=== PATIENT | female | born 1995 | race Caucasian/White ===

== ENCOUNTER → 2021-02-11 16:31 | Outpatient (CLI) | payer MEDICAID, SELFPAY ==
[2021-02-11 17:18] LABS: Hematocrit 39.3 % (37-47); Hemoglobin 11.6 g/dL (12.0-15.0); Mean Corp Hgb Conc 29.5 g/dL (32-36); Mean Corpuscular Hgb 24.1 pg (27.0-32.0); Mean Corpuscular Volume 81.5 fL (81-99); Mean Platelet Vol. 9.5 fl (6.2-12.0); Platelet Count 342 K/mm3 (150-450); RBC Distribution Width CV 13.3 % (11.6-14.6); RBC Distribution Width SD 39.8 fl (35.1-43.9); Red Blood Count 4.82 M/mm3 (4.2-5.4); White Blood Count 9.2 K/mm3 (4.4-11.0)
[2021-02-11 18:11] LABS: Follicle Stimulating Hormone 4.4 mIU/mL; Luteinizing Hormone 8.7 mIU/mL; Prolactin 8.5 ng/mL; T4 Free Direct 0.95 ng/dL (0.76-1.46)
[2021-02-11 18:15] LABS: hCG Titer Quant., Serum < 1 mIU/mL (1-3)
[2021-02-15 09:06] LABS: Thyroid Stim Hormone (TSH) 2.51 uIU/mL (0.358-3.74)
[2021-02-17 12:48] LABS: Testosterone Free 2.6 pg/mL (0.0-4.2)
== END ==
PROVIDERS: PCP Pediatrics; Visit Provider Obstetrics & Gynecology
DX: N91.2 Amenorrhea, unspecified (principal)
CPT/HCPCS: 36415; 82627; 83001; 83002; 84146; 84402; 84439; 84443; 84702; 85027; 82626

== ENCOUNTER 2021-12-07 16:40 | Outpatient (CLI) | payer MEDICAID, SELFPAY ==
[2021-12-13 13:00] LABS: HPV Reflexed? NOT INDICATED
== END 2021-12-07 23:59 | disposition home or self-care (01) ==
LOC: LABSPEC 16:43
PROVIDERS: PCP Pediatrics; Visit Provider Obstetrics & Gynecology
DX: Z12.4 Encounter for screening for malignant neoplasm of cervix (principal)
CPT/HCPCS: 88175; G0145

== ENCOUNTER 2021-12-27 16:14 | Outpatient (CLI) | payer MEDICAID, SELFPAY ==
[2021-12-30 07:09] LABS: Chlamydia By Nucleic Acid AMP Negative (Negative)
[2021-12-30 14:16] LABS: Gonococcus By Nucleic Acid AMP Negative (Negative)
== END 2021-12-27 23:59 | disposition home or self-care (01) ==
LOC: LABSPEC 16:15
PROVIDERS: PCP Pediatrics; Visit Provider Obstetrics & Gynecology
DX: Z11.3 Encounter for screening for infections with a predominantly sexual mode of transmission (principal)
CPT/HCPCS: 87491; 87591

== ENCOUNTER 2022-02-23 01:18 | Emergency (ER) | payer MEDICAID, SELFPAY ==
[2022-02-23 01:19] VITALS: BP 153/84; PULSE 81; RESP 16; TEMP 36.1; O2SAT 98; BMI 49.7
--- NOTE | 2022-02-23 01:40 | EX.ED.DYSGE1 ---
HPI History of Present Illness Chief Complaint: GI Bleed Informant: patient Narrative Narrative: 26-year-old female presenting to the emergency room with rectal pain and bleeding. Patient states that it is been normal for her to be constipated. Her last bowel movement was yesterday. She states that she started bleeding this afternoon. It worsened tonight and she notes a sharp pain in the rectum. She has had rectal bleeding before but not to this extent. [facility] Medical History (Updated 02/23/22 @ 01:[address] Jose David Asencio DO) Bilateral headaches Environmental allergies Hypertension Home Medications hydrocortisone-pramoxine [Proctofoam HC] 1 applic [place] BID PRN #10 g 02/23/22 [Rx Last Taken Unknown] Allergy/AdvReac Type Severity Reaction Status Date / Time Latex, Natural Rubber Allergy Mild itching Verified 02/23/22 01:21 Family History Other Asthma Heart disease Hypertension Seizures Surgical History History of section Social History Smoking Status: Never smoker alcohol intake: never substance use type: does not use what type of physical activity do you participate in: walking frequency: 1-2 times per week ROS ROS ED Constitutional Constitutional ED: Denies chills or weight loss Eyes Eyes: Denies change in vision or diplopia ENT ENT ED: Denies ear pain, rhinorrhea or sore throat Cardiovascular Cardiovascular: Denies chest pain, orthopnea, palpitations or racing heartbeat Respiratory/Chest Respiratory/Chest: Denies cough, dyspnea or orthopnea Gastrointestinal Gastrointestinal: Denies abdominal pain, diarrhea, nausea or vomiting Genitourinary Genitourinary ED: Denies dysuria, hematuria or urinary frequency Musculoskeletal Musculoskeletal: Denies arthralgias or myalgias Integumentary Denies abscess or rash Neurologic Neurologic: Denies headache(s) or weakness Psychiatric Psychiatric: Denies anxiety, depression, suicidal ideation or suicidal thoughts Endocrine Endocrinology: Denies polydipsia, polyphagia or polyuria Allergic/Immunologic Allergic/Immunologic ED: Denies mouth swelling, tongue swelling or urticaria EXAM Physical Exam Const Vital Signs: 02/23/22 01:19 Temperature 96.9 F L Temperature Source Oral Pulse Rate 81 Respiratory Rate 16 Blood Pressure 153/84 H Blood Pressure Mean 107 Pulse Ox 98 Oxygen Delivery Method Room Air Positive well nourished, well developed and obese General Appearance ED: well developed Nutritional Appearance: obese HEENT Reports normocephalic, head/scalp atraumatic, TM's clear and moist mucous membranes Negative for trauma Tympanic Membrane ED: Yes TM's clear Eyes PERRL and EOMs intact bilaterally Neck no lymphadenopathy, supple and no JVD Resp normal respiratory effort and clear to auscultation bilaterally Cardio regular rate, regular rhythm and no murmurs GI normal to inspection, nondistended, normoactive bowel sounds and non-tender Palpation: soft Narrative: Rectal examination was performed in the presence of a female nurse. There is evidence of a anal fissure as well as external hemorrhoids. There is a palpable internal hemorrhoid as well. There is no bright red blood on the glove. Back/Spine no CVA tenderness and normal ROM Extremity normal to inspection General Extremety ED: Negative for edema General Extremity: Negative for edema Neuro oriented x3 and CN's II-XII intact bilaterally Sensorium / Orientation: alert Motor Exam: strength 5/5 throughout Psych mental status grossly normal Mood & Affect: Negative for depressed or tearful Skin no rashes or lesions noted and no wounds MDM MDM MDM Narrative Medical decision making narrative: Recommend that the patient started daily Colace. Will apply some lidocaine tonight for comfort and I will prescribe Proctofoam. Discharge Plan Triage Chief Complaint: GI Bleed ED Provider: Jose David Asencio Dx/Rx/DC Orders Clinical Impression: Constipation, Acute anal fissure, Bright red rectal bleeding, Hemorrhoids Instructions: ED Understanding Anal Fissures, Understanding Hemorrhoids Prescriptions: New Proctofoam HC 1-1 % foam 1 applic [place] BID PRN (Reason: hemorrhoids) Qty: 10 RF: 0 Primary Care Provider: NOT,DEFINED Referrals: Friend,Baudilio, DO [STAFF PHYSICIAN] - As Needed (If you wish to visit with a brass buffer regarding her constipation and hemorrhoids) NOT,DEFINED [Primary Care Provider] - Disposition Disposition: Home, Self Care
[2022-02-23] MEDS: Lidocaine 2% Jelly 1 APPLIC Tube TOPICAL (01:43)
[2022-02-23 01:45] VITALS: BP 153/84; PULSE 81; RESP 18; O2SAT 99
== END 2022-02-23 01:52 | disposition home or self-care (01) ==
LOC: ED 01:51
PROVIDERS: Emergency Provider Emergency Medicine; Visit Provider Emergency Medicine
DX: K60.0 Acute anal fissure (principal); K62.5 Hemorrhage of anus and rectum; K64.9 Unspecified hemorrhoids; K59.00 Constipation, unspecified; I10 Essential (primary) hypertension
CPT/HCPCS: 99283

== ENCOUNTER 2022-04-19 12:13 | Emergency (ER) | payer MEDICAID, SELFPAY ==
[2022-04-19 12:14] VITALS: BP 166/102; PULSE 77; RESP 18; TEMP 36.8; O2SAT 98; BMI 52.4
--- NOTE | 2022-04-19 12:24 | CT_ITS ---
STUDY: CT BRAIN WITHOUT CONTRAST REASON FOR EXAM: Female, 26 years old. Syncope, head injury RADIATION DOSAGE (If Supplied By Facility): CTDIvol = ( 44.99 ) mGy, DLP = ( 745.49 ) mGycm TECHNIQUE: Transaxial CT imaging of the brain was performed without administration of intravenous contrast material. Individualized dose optimization techniques were used for this CT. COMPARISON: No relevant priors. FINDINGS: Normal soft tissue structures. Normal calvarium. Normal size ventricles and extra-axial spaces for the patient''s age. Normal white matter tracts of the cerebral hemispheres. Normal basal ganglia and thalami. Normal brainstem. Normal cerebellum. There is no intracranial hemorrhage. There are no findings of an acute ischemic infarction. Normal visualized paranasal sinuses. CT/Brain/Head without Contrast IMPRESSION: Normal unenhanced CT scan of the brain. Electronically Signed: Prabhakar Ronquillo MD at 13:21 EDT ,
--- NOTE | 2022-04-19 12:25 | EKG12_ITS ---
Test Reason : Syncope Blood Pressure : / mmHG Vent. Rate : 080 BPM Atrial Rate : 080 BPM P-R Int : 164 ms QRS Dur : 098 ms QT Int : 382 ms P-R-T Axes : 030 036 021 degrees QTc Int : 440 ms Normal sinus rhythm Normal ECG Confirmed by SAMUEL HESTER, JONO ([id number]), photograph editor JING HARRISON ([id number]) on 04/20/2022 11:07:45 AM Referred By: Delroy Confirmed By:JONO BAKER MD
--- NOTE | 2022-04-19 12:25 | EX.ED.DYSGE1 ---
HPI History of Present Illness Chief Complaint: Syncope Detail of Chief Complaint: Syncope with head injury that occurred yesterday Informant: patient Narrative Narrative: TubPatient presents to the emergency department after sustaining a syncopal episode yesterday while in the shower. Patient states that she had just worked all day and had mowed the lawn when she went in the shower she started feeling lightheaded and got tunnel vision and then remembers waking up in a seated position. Patient did hit the left side of her head on the tile. Today she woke up and she is feeling lightheaded and nauseated and vomited x2 this morning. Patient unsure of her last menstrual period but is on an oral contraceptive. She denies chest pain. Patient denies recent illness. Patient states she is currently being evaluated for her thyroid and for anemia. Prior similar symptoms: No PFSH PFSH Medical History (Updated 04/19/22 @ 13:[address] Landon Addison DO) Bilateral headaches Environmental allergies Hypertension Home Medications pantoprazole 40 mg tablet,delayed release 1 tab PO DAILY 04/19/22 [History Last Taken Unknown] Allergy/AdvReac Type Severity Reaction Status Date / Time Latex, Natural Rubber Allergy Mild itching Verified 04/19/22 12:14 Family History Other Asthma Heart disease Hypertension Seizures Surgical History History of section Social History Smoking Status: Current every day smoker tobacco type: e-cigarettes alcohol intake: never substance use type: does not use what type of physical activity do you participate in: walking frequency: 1-2 times per week ROS ROS ED Review of Systems ROS Unobtainable: other Constitutional Constitutional ED: Reports lethargy; Denies chills, fever(s), sweats or weight loss Eyes Eyes: Denies blurry vision, change in vision or diplopia ENT ENT ED: Denies rhinorrhea or sore throat Cardiovascular Cardiovascular: Denies chest pain, orthopnea or racing heartbeat Respiratory/Chest Respiratory/Chest: Reports dyspnea and dyspnea on exertion; Denies cough, orthopnea or sputum Gastrointestinal Gastrointestinal: Reports nausea and vomiting; Denies abdominal pain or diarrhea Genitourinary Genitourinary ED: Denies dysuria, hematuria or urinary frequency Musculoskeletal Musculoskeletal: Denies arthralgias, back pain, myalgias or neck pain Integumentary Denies abscess, Abrasions or rash Neurologic Neurologic: Reports headache(s); Denies weakness Psychiatric Psychiatric: Denies anxiety, depression or suicidal thoughts Endocrine Endocrinology: Denies polydipsia, polyphagia or polyuria Hematologic/Lymphatic Hematologic/Lymphatic: Denies easy bleeding, easy bruising or lymphadenopathy Allergic/Immunologic Allergic/Immunologic ED: Denies mouth swelling, tongue swelling or urticaria EXAM Physical Exam Const Vital Signs: 04/19/22 12:14 04/19/22 12:42 04/19/22 12:42 Temperature 98.3 F Temperature Source Temporal Pulse Rate 77 74 Respiratory Rate 18 15 Respiratory Effort Normal Respiratory Pattern Normal Blood Pressure 166/102 H 120/83 H Blood Pressure Mean 123 95 Pulse Ox 98 98 Oxygen Delivery Method Room Air Room Air Positive well nourished and well developed General Appearance ED: well developed and NAD HEENT Reports TM's clear and moist mucous membranes normocephalic and atraumatic; Negative for trauma or tenderness Tympanic Membrane ED: Yes TM's clear Eyes PERRL and EOMs intact bilaterally General Eye ED: Negative for pale conjunctiva or scleral icterus Neck no lymphadenopathy, supple and no JVD General: Negative for tenderness Chest Wall inspection of chest normal and palpation of chest normal Chest: Negative for tenderness Resp normal respiratory effort and clear to auscultation bilaterally Effort and Inspection: Negative for respiratory distress or pain with movement Auscultation: Negative for rhonchi, wheezes or diminished lung sounds Cardio regular rate, regular rhythm, S1 normal heart sound, S2 normal heart sound and no murmurs Peripheral Pulses: pulses 2+ throughout GI normal to inspection, nondistended, normoactive bowel sounds, soft to palpation, non-tender, non-distended and no masses Back/Spine no CVA tenderness and no thoracic nor lumbar tenderness Extremity normal to inspection General Extremety ED: Negative for edema General Extremity: Negative for edema Neuro oriented x3, CN's II-XII intact bilaterally, no sensory deficits noted and gait normal Sensorium / Orientation: awake, alert, oriented to person, oriented to place and oriented to time Motor Exam: strength 5/5 throughout and strength abnormal Psych mental status grossly normal Skin no rashes or lesions noted and no wounds MDM MDM MDM Narrative Medical decision making narrative: IV line established on arrival. Patient was given a liter mostly of fluid bolus. CT scan of the brain without contrast showed nothing acute. Lab work-up was unremarkable and hCG was negative. At this point I suspect patient likely had a vasovagal episode and then struck her head on the bathtub sustaining a possible concussion. I feel patient is safe for discharge to home. I can write her prescription for Zofran for nausea. Patient advised to follow-up with her primary care physician within next 3 to 5 days. Lab Data Attestation: I reviewed the patient's lab results. Labs: Laboratory Results - last 24 hr 04/19/22 04/19/22 04/19/22 12:34 12:34 12:34 WBC 11.0 RBC 4.53 Hgb 11.9 L Hct 38.7 MCV 85.4 MCH 26.3 L MCHC 30.7 L RDW Std Deviation 41.1 RDW Coeff of Alfredo 13.2 Plt Count 319 MPV 9.1 Immature Gran % (Auto) 0.500 Neut % (Auto) 62.6 Lymph % (Auto) 29.0 [place] % (Auto) 6.2 Eos % (Auto) 1.2 Baso % (Auto) 0.5 Absolute Neuts (auto) 6.9 Absolute Lymphs (auto) 3.18 Nucleated RBC % 0 Sodium 138 Potassium 4.0 Chloride 104 Carbon Dioxide 29.0 Anion Gap 5 BUN 11 Creatinine 0.58 Estim Creat Clear Calc 118.29 Est GFR (MDRD) Af Amer 164 Est GFR (MDRD) Non-Af 135 BUN/Creatinine Ratio 18.9 Glucose 95 Calcium 9.5 Serum , Qual NEGATIVE Radiography Diagnostic Testing: Clinical Impression(s) from Imaging Studies Brain CT 04/19/22 12:24 IMPRESSION: Normal unenhanced CT scan of the brain. Electronically Signed: Prabhakar Ronquillo MD at 13:21 EDT , EKG Initial EKG: Attestation: I personally reviewed and interpreted this EKG as follows: Comments: Sinus rhythm with a rate of 80 bpm with no acute ST segment changes Discharge Plan Triage Chief Complaint: Syncope ED Provider: Landon Addison Dx/Rx/DC Orders Clinical Impression: Syncope, vasovagal, Closed head injury Instructions: After a Concussion, ED Head Injury (Adult), ED Fainting, Vagal Reaction Prescriptions: No Action pantoprazole 40 mg tablet,delayed release (DR/EC) 1 tab PO DAILY Primary Care Provider: Annette Abbott Referrals: Annette Abbott MD [Primary Care Provider] - 3-5 Days Care Physician,No Primary [NON-STAFF] - Disposition Disposition: Home, Self Care
[2022-04-19] MEDS: Ondansetron 4 MG/2 ML Vial IV (12:40)
[2022-04-19 12:42] VITALS: BP 120/83; PULSE 74; RESP 15; O2SAT 98
[2022-04-19 12:44] LABS: Absolute Lymphocyte Count 3.18 X10^3/uL (0.83-4.51); Absolute Neutrophil Count 6.9 X10^3/uL (2.0-7.7); Basophil# 0.05 X10^3/uL; Basophil% 0.5 % (0-1); Eosinophil# 0.13 X10^3/uL; Eosinophils% 1.2 % (0-5); Hematocrit 38.7 % (37-47); Hemoglobin 11.9 g/dL (12.0-15.0); Lymphocyte # 3.18 X10^3/ul (0.83-4.51); Mean Corp Hgb Conc 30.7 g/dL (32-36); Mean Corpuscular Hgb 26.3 pg (27.0-32.0); Mean Corpuscular Volume 85.4 fL (81-99); Mean Platelet Vol. 9.1 fl (6.2-12.0); Monocyte# 0.68 X10^3/uL; Monocyte% 6.2 % (0-10); NRBC Flagged by Analyzer 0 % (0-5); Neutrophil # 6.86 X10^3/uL (2.7-7.7); Neutrophil % 62.6 % (47-70); Platelet Count 319 K/mm3 (150-450); RBC Distribution Width CV 13.2 % (11.6-14.6); RBC Distribution Width SD 41.1 fl (35.1-43.9); Red Blood Count 4.53 M/mm3 (4.2-5.4)
[2022-04-19 12:52] LABS: Anion Gap 5 (5-15); BUN 11 mg/dL (7-18); BUN/Creat Ratio 18.9 RATIO (10-20); Calcium,Total 9.5 mg/dL (8.5-10.1); Chloride 104 mmol/L (98-107); Creatinine, Serum 0.58 mg/dL (0.55-1.02); EST Glomerular Filtration Rate 135 mL/min (>60); Est Glom Filt Rate - Afr Amer 164 mL/min (>60); Estimated Creatinine Clearance 118.29 ml/min; Glucose 95 mg/dL (74-106); Internal QC Validated? YES +Cl - CLEAR BKGD; Pregnancy, Serum, hCG Quali. NEGATIVE Negative; Sodium Level 138 mmol/L (136-145)
[2022-04-19] MEDS: 0.9% Normal Saline 1,000 ML 999 ML IV (13:17)
== END 2022-04-19 14:14 | disposition home or self-care (01) ==
PROVIDERS: Emergency Provider Emergency Medicine; PCP Internal Medicine; Visit Provider Emergency Medicine
DX: R55 Syncope and collapse (principal); S09.90XA Unspecified injury of head, initial encounter; Y93.E1 Activity, personal bathing and showering; W18.2XXA Fall in (into) shower or empty bathtub, initial encounter; Y92.002 Bathroom of unspecified non-institutional (private) residence as the place of occurrence of the external cause; R11.2 Nausea with vomiting, unspecified; I10 Essential (primary) hypertension; F17.290 Nicotine dependence, other tobacco product, uncomplicated
CPT/HCPCS: 70450; 80048; 84703; 85025; 93005; 96361; 96374; 99283; J2405

== ENCOUNTER 2022-07-12 12:54 | Emergency (ER) | payer MEDICAID, SELFPAY ==
[2022-07-12 12:55] VITALS: BP 145/102; PULSE 100; RESP 15; TEMP 36.8; O2SAT 100; BMI 54.3
[2022-07-12 14:11] VITALS: O2SAT 100
[2022-07-12 14:13] VITALS: O2SAT 100
--- NOTE | 2022-07-12 14:21 | EKG12_ITS ---
Test Reason : SOB Blood Pressure : / mmHG Vent. Rate : 077 BPM Atrial Rate : 077 BPM P-R Int : 166 ms QRS Dur : 100 ms QT Int : 370 ms P-R-T Axes : 020 004 003 degrees QTc Int : 418 ms Normal sinus rhythm Inferior infarct , age undetermined Abnormal ECG Confirmed by SAMUEL HESTER, JONO ([id number]), editor farm journal JING HARRISON ([id number]) on 07/14/2022 8:03:53 AM Referred By: BILL Confirmed By:JONO BAKER MD
--- NOTE | 2022-07-12 14:22 | EX.ED.DYSGE1 ---
HPI History of Present Illness Chief Complaint: Shortness of Breath Informant: patient Onset/Context/Timing Onset: Today Current Severity: Mild Maximum Severity: Moderate Narrative Narrative: Patient presents with shortness of breath that she noted when she woke this morning. She also felt lightheaded and dizzy. She does report a slight heaviness in her central chest. No palpitations. She states with any exertion she feels more short of breath. She has not had significant cough or fever. [facility] Medical History Bilateral headaches Depression Environmental allergies GERD (gastroesophageal reflux disease) Home Medications pantoprazole 40 mg tablet,delayed release 1 tab PO DAILY 04/19/22 [History Last Taken Unknown] sulfamethoxazole 800 mg-trimethoprim 160 mg tablet (Bactrim DS) 1 tab PO BID #6 tabs 07/12/22 [Rx Last Taken Unknown] Allergy/AdvReac Type Severity Reaction Status Date / Time Latex, Natural Rubber Allergy Mild itching Verified 07/12/22 12:55 Family History Other Asthma Heart disease Hypertension Seizures Surgical History History of section Social History Smoking Status: Current every day smoker tobacco type: e-cigarettes alcohol intake: never substance use type: does not use what type of physical activity do you participate in: walking frequency: 1-2 times per week ROS ROS ED Constitutional Constitutional ED: Denies chills or fever(s) Eyes Eyes: Denies change in vision or discharge from eye(s) ENT ENT ED: Denies discharge from eye(s), rhinorrhea or sore throat Cardiovascular Cardiovascular: Reports chest pain; Denies palpitations Respiratory/Chest Respiratory/Chest: Reports dyspnea; Denies cough Gastrointestinal Gastrointestinal: Denies abdominal pain, diarrhea, nausea or vomiting Genitourinary Genitourinary ED: Denies difficulty urinating or dysuria Musculoskeletal Musculoskeletal: Denies back pain or extremity pain Integumentary Denies Abrasions or rash Neurologic Neurologic: Denies headache(s) or weakness Psychiatric Psychiatric: Denies anxiety or depression Allergic/Immunologic Allergic/Immunologic ED: Denies lip swelling or urticaria EXAM Physical Exam Const Vital Signs: 07/12/22 12:55 07/12/22 14:11 07/12/22 14:13 Temperature 98.2 F Temperature Source Temporal Pulse Rate 100 Pulse Rate [Lying] Pulse Rate [Sitting (for 1 minute prior to obtaining)] Pulse Rate [Standing (for 1 minute prior to obtaining)] Respiratory Rate 15 Respiratory Effort Normal Non-Labored Respiratory Depth Normal Respiratory Pattern Normal Blood Pressure 145/102 H Blood Pressure [Lying] Blood Pressure [Sitting (for 1 minute prior to obtaining)] Blood Pressure [Standing (for 1 minute prior to obtaining)] Blood Pressure Mean 116 Blood Pressure Mean [Lying] Blood Pressure Mean [Sitting (for 1 minute prior to obtaining)] Blood Pressure Mean [Standing (for 1 minute prior to obtaining)] Pulse Ox 100 100 Oxygen Delivery Method Room Air Room Air Room Air 07/12/22 15:25 Temperature Temperature Source Pulse Rate Pulse Rate [Lying] 92 Pulse Rate [Sitting (for 1 minute prior to obtaining)] 81 Pulse Rate [Standing (for 1 minute prior to obtaining)] 85 Respiratory Rate Respiratory Effort Respiratory Depth Respiratory Pattern Blood Pressure Blood Pressure [Lying] 137/82 H Blood Pressure [Sitting (for 1 minute prior to obtaining)] 179/94 H Blood Pressure [Standing (for 1 minute prior to obtaining)] 146/98 H Blood Pressure Mean Blood Pressure Mean [Lying] 100 Blood Pressure Mean [Sitting (for 1 minute prior to obtaining)] 122 Blood Pressure Mean [Standing (for 1 minute prior to obtaining)] 114 Pulse Ox Oxygen Delivery Method Positive well nourished and well developed General Appearance ED: well developed HEENT Reports normocephalic and head/scalp atraumatic Eyes PERRL and EOMs intact bilaterally Neck supple Chest Wall inspection of chest normal and palpation of chest normal Resp normal respiratory effort and clear to auscultation bilaterally Cardio regular rate and regular rhythm GI normal to inspection, nondistended, normoactive bowel sounds Palpation: soft Extremity normal to inspection Neuro oriented x3 and no sensory deficits noted Sensorium / Orientation: alert Motor Exam: strength 5/5 throughout Psych mental status grossly normal Skin no rashes or lesions noted MDM MDM MDM Narrative Medical decision making narrative: Patient placed on awake overnight monitor. EKG, lab work obtained. Patient given IV fluids. Lab Data Attestation: I reviewed the patient's lab results. Labs: Laboratory Results - last 24 hr 07/12/22 07/12/22 07/12/22 14:32 14:32 14:32 WBC 13.0 H RBC 4.65 Hgb 12.2 Hct 39.8 MCV 85.6 MCH 26.2 L MCHC 30.7 L RDW Std Deviation 42.1 RDW Coeff of Alfredo 13.4 Plt Count 310 MPV 9.2 Immature Gran % (Auto) 0.300 Neut % (Auto) 66.8 Lymph % (Auto) 24.7 Leslie % (Auto) 5.8 Eos % (Auto) 2.0 Baso % (Auto) 0.4 Absolute Neuts (auto) 8.7 H Absolute Lymphs (auto) 3.21 Nucleated RBC % 0 D-Dimer Quant (PE/DVT) < 0.27 L Sodium 140 Potassium 4.0 Chloride 107 Carbon Dioxide 29.0 Anion Gap 4 L BUN 16 Creatinine 0.71 Estim Creat Clear Calc 96.63 Est GFR (MDRD) Af Amer 130 Est GFR (MDRD) Non-Af 107 BUN/Creatinine Ratio 22.6 H Glucose 99 Calcium 9.3 Troponin I High Sens 4 Serum , Qual Urine Color Urine Clarity Urine pH Ur Specific [place] Urine Protein Urine Glucose (UA) Urine Ketones Urine Occult Blood Urine Nitrite Urine Bilirubin Urine Urobilinogen Ur Leukocyte Esterase Urine RBC Urine WBC Ur Squamous Epith Cells Urine Bacteria Urine Mucus 07/12/22 07/12/22 14:32 15:45 WBC RBC Hgb Hct MCV MCH MCHC RDW Std Deviation RDW Coeff of Alfredo Plt Count MPV Immature Gran % (Auto) Neut % (Auto) Lymph % (Auto) Leslie % (Auto) Eos % (Auto) Baso % (Auto) Absolute Neuts (auto) Absolute Lymphs (auto) Nucleated RBC % D-Dimer Quant (PE/DVT) Sodium Potassium Chloride Carbon Dioxide Anion Gap BUN Creatinine Estim Creat Clear Calc Est GFR (MDRD) Af Amer Est GFR (MDRD) Non-Af BUN/Creatinine Ratio Glucose Calcium Troponin I High Sens Serum , Qual NEGATIVE Urine Color Yellow Urine Clarity Clear Urine pH 6.5 Ur Specific [place] 1.020 Urine Protein Negative Urine Glucose (UA) Normal Urine Ketones Negative Urine Occult Blood 10 H Urine Nitrite Negative Urine Bilirubin Negative Urine Urobilinogen Normal Ur Leukocyte Esterase 25 H Urine RBC 0-5 SEEN Urine WBC 0-5 SEEN Ur Squamous Epith Cells 5-10 SEEN Urine Bacteria 3+ Urine Mucus 1+ Radiography Chest X-Ray - ED: 1 View, Read by ED Physician, Normal, Heart, Lungs and Mediastinum Diagnostic Testing: Clinical Impression(s) from Imaging Studies Chest X-Ray 07/12/22 14:44 IMPRESSION: Normal x-ray examination of the chest. Electronically Signed: Prabhakar Ronquillo MD at 15:20 EDT , EKG Initial EKG: Attestation: I personally reviewed and interpreted this EKG as follows: Interpretation: Sinus Rhythm (Sinus at 77 with no acute ischemia.) Treatment and Re-Evaluation Narrative: CBC was a white count of 13.0 but no significant left shift. Chemistry studies unremarkable. D-dimer and troponin negative. Given the patient's elevated white count urinalysis was ordered and orthostatic vital signs obtained. Orthostatic vital signs are unremarkable patient states that she did not feel dizzy when she stood. Urinalysis does show 3+ bacteria, however she does have 5-10 epithelial cells. I do feel that with the elevated white count it is worth 3 days of antibiotic to ensure her urine is clear. She will be given initial dose of Bactrim here and prescription sent to the pharmacy for her. Return instructions provided. Discharge Plan Triage Chief Complaint: Shortness of Breath ED Provider: Michelle Greenfield Dx/Rx/DC Orders Clinical Impression: Dizziness, Bacteriuria Instructions: ED Dizziness, Uncertain Cause, ED Cystitis Female Adult Prescriptions: New sulfamethoxazole-trimethoprim [Bactrim DS] 800-160 mg tablet 1 tab PO BID Qty: 6 0RF No Action pantoprazole 40 mg tablet,delayed release (DR/EC) 1 tab PO DAILY Primary Care Provider: Annette Abbott Referrals: Annette Abbott MD [Primary Care Provider] - 1 Week Disposition Disposition: Home, Self Care
[2022-07-12 14:42] LABS: Absolute Lymphocyte Count 3.21 X10^3/uL (0.83-4.51); Absolute Neutrophil Count 8.7 X10^3/uL (2.0-7.7); Basophil# 0.05 X10^3/uL; Basophil% 0.4 % (0-1); Eosinophil# 0.26 X10^3/uL; Hematocrit 39.8 % (37-47); Hemoglobin 12.2 g/dL (12.0-15.0); Lymphocyte # 3.21 X10^3/ul (0.83-4.51); Lymphocyte % 24.7 % (19-41); Mean Corp Hgb Conc 30.7 g/dL (32-36); Mean Corpuscular Hgb 26.2 pg (27.0-32.0); Mean Corpuscular Volume 85.6 fL (81-99); Mean Platelet Vol. 9.2 fl (6.2-12.0); Monocyte# 0.75 X10^3/uL; Monocyte% 5.8 % (0-10); NRBC Flagged by Analyzer 0 % (0-5); Neutrophil % 66.8 % (47-70); Platelet Count 310 K/mm3 (150-450); RBC Distribution Width CV 13.4 % (11.6-14.6); RBC Distribution Width SD 42.1 fl (35.1-43.9); Red Blood Count 4.65 M/mm3 (4.2-5.4)
--- NOTE | 2022-07-12 14:44 | RAD_ITS ---
STUDY: X-RAY CHEST REASON FOR EXAM: Female, 26 years old. Sob TECHNIQUE: Single AP portable view of the chest. COMPARISON: None. FINDINGS: The lungs are clear and expanded. There is no demonstrated pleural abnormality. Normal size heart. Normal mediastinum and zhao. Normal visualized pulmonary arteries. Normal visualized aortic arch and descending thoracic aorta. Normal visualized thoracic spine. Normal visualized ribs, clavicles, and shoulders. There is no demonstrated abnormality of the visualized soft tissue structures of the upper abdomen. RAD/Chest 1 View (Portable) IMPRESSION: Normal x-ray examination of the chest. Electronically Signed: Prabhakar Ronquillo MD at 15:20 EDT ,
[2022-07-12 15:06] LABS: Anion Gap 4 (5-15); BUN 16 mg/dL (7-18); BUN/Creat Ratio 22.6 RATIO (10-20); Calcium,Total 9.3 mg/dL (8.5-10.1); Chloride 107 mmol/L (98-107); Creatinine, Serum 0.71 mg/dL (0.55-1.02); D-Dimer Quantitative (DVT/PE) < 0.27 FEU/ug/m (0.27-0.49); EST Glomerular Filtration Rate 107 mL/min (>60); Est Glom Filt Rate - Afr Amer 130 mL/min (>60); Estimated Creatinine Clearance 96.63 ml/min; Glucose 99 mg/dL (74-106); Sodium Level 140 mmol/L (136-145); Troponin-I HS 4 pg/mL (3.0-54.0)
[2022-07-12] MEDS: 0.9% Normal Saline 1,000 ML 1000 ML IV (15:06)
[2022-07-12 15:16] LABS: Internal QC Validated? YES +Cl - CLEAR BKGD; Pregnancy, Serum, hCG Quali. NEGATIVE Negative
[2022-07-12 15:25] VITALS: BP 137/82; BP 146/98; BP 179/94; PULSE 81; PULSE 85; PULSE 92
[2022-07-12 15:57] LABS: Color, Urine Yellow (Yellow); Glucose, Dipstick Normal (Normal); Ketone-Dipstick Negative (Negative); Leukocyte Esterase-Dipstick 25 /ul (Negative); Nitrite-Dipstick Negative (Negative); Occult Blood-Urine 10 /ul (Negative); Protein-Dipstick Negative (Negative); Urine Bilirubin Dipstick Negative (Negative); Urine Urobilinogen Normal (Normal); Urine pH 6.5 (5.0 - 8.0)
[2022-07-12 16:06] LABS: Urine Clarity Clear (Clear)
[2022-07-12 16:24] LABS: White Blood Cells 0-5 SEEN /hpf (0-5)
[2022-07-12 16:25] LABS: Bacteria 3+ /hpf (None Seen); Mucous, Urine 1+ /hpf (<or=2+); Red Blood Cells-Urine 0-5 SEEN /hpf (0-5); Squamous Epithelial Cells - UA 5-10 SEEN /hpf (5-10)
[2022-07-12 17:08] VITALS: BP 125/82; PULSE 109; RESP 25; O2SAT 94
[2022-07-12] MEDS: Smz/Tmp Ds Tablet 1 TABLET PO (17:25)
== END 2022-07-12 17:30 | disposition home or self-care (01) ==
PROVIDERS: Emergency Provider Emergency Medicine; PCP Internal Medicine; Visit Provider Emergency Medicine
DX: R42 Dizziness and giddiness (principal); R82.71 Bacteriuria; F17.290 Nicotine dependence, other tobacco product, uncomplicated
CPT/HCPCS: 71045; 80048; 81001; 84484; 84703; 85025; 85379; 87811; 93005; 96360; 99285; J7030; A4216

== ENCOUNTER 2022-10-03 18:33 | Emergency (ER) | payer MEDICAID, SELFPAY ==
[2022-10-03 18:34] VITALS: BP 150/89; PULSE 103; RESP 18; TEMP 36.8; O2SAT 100; BMI 52.8
--- NOTE | 2022-10-03 20:29 | EDS_ITS ---
HPI HPI - URI History of Present Illness Chief Complaint: Shortness of Breath Detail of Chief Complaint: URI symptoms since Monday night. Nausea and vomiting today. Informant: patient Onset/Context/Timing Onset: Days Context: Gradual Onset Timing: Continuous Current Severity: Mild Maximum Severity: Mild Associated Symptoms Associated Symptoms: Positive for Nasal Congestion, Nausea, Vomiting and Productive Cough (Yellow sputum.); Negative for Hemoptysis Narrative Narrative: 26-year-old female no seen past medical history. States she had a cough since Monday. Developed nausea and vomiting last night. Subjective fever and chills. Yellowish sputum. No hemoptysis. Prior similar symptoms: Yes ROS ROS ED ROS Narrative Cough. Sputum. Fever and chills. Nausea vomiting. Review of Systems ROS Unobtainable: Denies due to encephalopathy Constitutional Constitutional ED: Reports chills, fever(s) and subjective Eyes Eyes: Denies blurry vision ENT ENT ED: Reports rhinorrhea; Denies ear pain or sore throat Cardiovascular Cardiovascular: Denies chest pain or palpitations Respiratory/Chest Respiratory/Chest: Reports cough and dyspnea Gastrointestinal Gastrointestinal: Reports nausea and vomiting; Denies abdominal pain, constipation, diarrhea or melena Genitourinary Genitourinary ED: Denies dysuria Musculoskeletal Musculoskeletal: Denies arthralgias Integumentary Denies abscess Neurologic Neurologic: Denies headache(s) Psychiatric Psychiatric: Denies anxiety Endocrine Endocrinology: Denies cold intolerance Hematologic/Lymphatic Hematologic/Lymphatic: Denies easy bleeding Allergic/Immunologic Allergic/Immunologic ED: Denies mouth swelling or tongue swelling PFSH PFSH Medical History Bilateral headaches Depression Environmental allergies GERD (gastroesophageal reflux disease) Home Medications pantoprazole 40 mg tablet,delayed release 1 tab PO DAILY 04/19/22 [History Last Taken Unknown] sulfamethoxazole 800 mg-trimethoprim 160 mg tablet (Bactrim DS) 1 tab PO BID #6 tabs 07/12/22 [Rx Last Taken Unknown] ergocalciferol (vitamin D2) 1,250 mcg (50,000 unit) capsule (Vitamin D2) 10/03/22 [History Last Taken Unknown] ferrous sulfate 325 mg (65 mg iron) tablet (FeroSul) mg 10/03/22 [History Last Taken Unknown] ondansetron 4 mg disintegrating tablet 4 mg PO Q6H PRN nausea and vomiting #7 tabs 10/03/22 [Rx Last Taken Unknown] Allergy/AdvReac Type Severity Reaction Status Date / Time Latex, Natural Rubber Allergy Mild itching Verified 10/03/22 18:34 Family History Other Asthma Heart disease Hypertension Seizures Surgical History History of section Social History Smoking Status: Former smoker alcohol intake: never substance use type: does not use what type of physical activity do you participate in: walking frequency: 1-2 times per week EXAM Physical Exam Narrative Exam Narrative: 26-year-old female no acute distress vital signs stable afebrile. Does not look septic or toxic. Pulse ox 100% on room air no hypoxia. H EENT exam unremark able. Moist mucous membranes. Posterior pharynx unremarkable. Right TM obscured by wax left unremarkable. Neck nontender no lymphadenopathy. No meningismus. Lungs clear to auscultation bilaterally. Heart regular rhythm rate about 100 no murmur. Abdomen soft nontender. Normal bowel sounds no peritoneal signs. Moving all 4 extremities. Calves are nontender with edema or cords. Back nontender. Neurologic exam normal Const Vital Signs: 10/03/22 18:34 10/03/22 20:00 Temperature 98.2 F Temperature Source Temporal Pulse Rate 103 H Respiratory Rate 18 Respiratory Effort Normal Non-Labored Respiratory Pattern Normal Blood Pressure 150/89 H Blood Pressure Mean 109 Pulse Ox 100 Oxygen Delivery Method Room Air Positive well nourished, well developed and obese; Negative for cachectic or contractures General Appearance ED: well developed and NAD; Negative for cachectic, contractures, cyanotic, diaphoretic or pallor Nutritional Appearance: obese; Negative for cachectic HEENT Reports moist mucous membranes; Denies dry mucous membranes normocephalic and atraumatic; Negative for scalp tenderness Face and Sinus: Negative for sinus tenderness Mouth ED: No dry mucous membranes Mouth: No dry mucous membranes Teeth and Gingiva: Negative for caries Throat: posterior oropharynx normal; Negative for tonsils abnormal or posterior oropharynx abnormal Eyes PERRL and EOMs intact bilaterally General Eye ED: Negative for pale conjunctiva Neck no lymphadenopathy, supple, no meningeal signs and no JVD General: Negative for anterior neck swelling or lymphadenopathy Resp normal respiratory effort and clear to auscultation bilaterally Effort and Inspection: Negative for retractions Auscultation: Negative for rales, rhonchi or wheezes Cardio S1 normal heart sound, S2 normal heart sound and no murmurs Rate: regular rate Rhythm: regular rhythm GI non-tender, non-distended and no masses Inspection: Negative for abdominal distention Auscultation: normoactive bowel sounds Palpation: soft; Negative for tender or guarding Back/Spine no CVA tenderness and normal ROM General Back: Negative for CVA tenderness Cervical Spine: Negative for cervical spine tenderness Thoracic Spine / Upper Back: Negative for thoracic spinal tenderness Lumbar Spine / Lower Back: Negative for lumbar spinal tenderness Extremity normal to inspection and full ROM General Extremety ED: Negative for cyanosis or tenderness General Extremity: Negative for cyanosis Neuro oriented x3 and CN's II-XII intact bilaterally Sensorium / Orientation: alert, oriented to person, oriented to place and oriented to time; Negative for orientation impaired, lethargic or stuporous Motor Exam: strength 5/5 throughout Psych mental status grossly normal Appearance: Negative for other Attitude: No agitated Mood & Affect: Negative for depressed, anxious or tearful Skin General Skin Exam: Negative for jaundice or pallor Lesions: no lesions Rashes: no rashes Trauma: Negative for abrasion or laceration MDM MDM MDM Narrative Medical decision making narrative: 26-year-old female exam and history consistent with viral syndrome. Given a dose of Zofran here for nausea vomiting. Sent a prescription to her pharmacy for Zofran. Fluids and rest. Tylenol Motrin. She does not need any imaging or labs. Discharge Plan Triage Chief Complaint: Shortness of Breath ED Provider: Vikas Baez Dx/Rx/DC Orders Clinical Impression: Viral syndrome, Nausea & vomiting Instructions: ED Upper Resp Infec Abx Tx, ED Vomiting (Adult) Prescriptions: New ondansetron 4 mg tablet,disintegrating 4 mg PO Q6H PRN (Reason: nausea and vomiting) Qty: 7 0RF No Action pantoprazole 40 mg tablet,delayed release (DR/EC) 1 tab PO DAILY sulfamethoxazole-trimethoprim [Bactrim DS] 800-160 mg tablet 1 tab PO BID Qty: 6 0RF ferrous sulfate [FeroSul] 325 mg (65 mg iron) tablet Label Comments: take 1 tablet by mouth twice a day with meals ergocalciferol (vitamin D2) [Vitamin D2] 1,250 mcg (50,000 unit) capsule Label Comments: take 1 capsule by mouth TWO TIMES PER WEEK FOR 1 MONTH, THEN DECREASE TO 1 CAP WEEKLY Primary Care Provider: Annette Abbott Referrals: Annette Abbott MD [Primary Care Provider] - 3-5 Days if not improving Activity Restrictions/Additional Instructions: Zofran as needed for nausea. Plenty of fluids and rest. Off work next couple days Motrin and Tylenol for fever. Follow-up with your doctor if not improving. Return if worse. Disposition Disposition: Home, Self Care
[2022-10-03] MEDS: Ondansetron ODT 4 MG Tablet PO (20:33)
[2022-10-03 20:39] VITALS: BP 132/74; PULSE 81; RESP 18; O2SAT 95
== END 2022-10-03 20:39 | disposition home or self-care (01) ==
PROVIDERS: Emergency Provider Emergency Medicine; PCP Internal Medicine; Visit Provider Emergency Medicine
DX: B34.9 Viral infection, unspecified (principal); R11.2 Nausea with vomiting, unspecified; Z87.891 Personal history of nicotine dependence
CPT/HCPCS: 99283

== ENCOUNTER 2023-05-18 06:45 | Emergency (ER) | payer MEDICAID, SELFPAY ==
[2023-05-18 06:46] VITALS: BP 148/84; PULSE 69; RESP 18; TEMP 36.3; O2SAT 99; BMI 49.9
[2023-05-18 07:04] LABS: Mucous, Urine 0 SEEN /hpf (<or=2+)
[2023-05-18 07:12] LABS: Color, Urine Yellow (Yellow); Glucose, Dipstick Normal (Normal); Ketone-Dipstick Negative (Negative); Leukocyte Esterase-Dipstick 25 /ul (Negative); Nitrite-Dipstick Negative (Negative); Occult Blood-Urine 250 /ul (Negative); Protein-Dipstick 30 mg/dl (Negative); Urine Bilirubin Dipstick Negative (Negative); Urine Clarity Sl. Cloudy (Clear); Urine Urobilinogen Normal (Normal)
[2023-05-18 07:16] LABS: Internal QC Validated? YES +Cl - CLEAR BKGD; Pregnancy, Urine Negative Negative
--- NOTE | 2023-05-18 07:19 | ED.VIS.FEGU ---
HPI HPI - Female History of Present Illness Chief Complaint: Vag Bld, Preg Informant: patient Bleeding Issue: Positive for Vaginal bleeding Onset: Today Context: Sudden Onset Timing: Continuous Associated Symptoms Associated Symptoms: Negative for Dysuria or Frequency Test: Positive (Faintly) Narrative Narrative: Patient presents with vaginal bleeding that began today. Patient states she took a home test 3 days ago and it was faintly positive. Patient denies any cramping or discharge. Patient states her bleeding is similar to her normal menstrual period. Patient states that has been constant throughout the day today. Patient denies any fevers or chills. Patient denies any dysuria or urinary frequency. Patient admits to some mild nausea but denies any vomiting. Patient denies any back pain. PFSH PFSH Medical History Bilateral headaches Depression Environmental allergies GERD (gastroesophageal reflux disease) Home Medications pantoprazole 40 mg tablet,delayed release 1 tab PO DAILY 04/19/22 [History Last Taken Unknown] ergocalciferol (vitamin D2) 1,250 mcg (50,000 unit) capsule (Vitamin D2) 1,250 mcg PO DAILY 10/03/22 [History Last Taken Unknown] ferrous sulfate 325 mg (65 mg iron) tablet (FeroSul) 325 mg PO BID 10/03/22 [History Last Taken Unknown] ondansetron 4 mg disintegrating tablet 4 mg PO Q6H PRN nausea and vomiting #7 tabs 10/03/22 [Rx Last Taken Unknown] Allergy/AdvReac Type Severity Reaction Status Date / Time Latex, Natural Rubber Allergy Mild itching Verified 05/18/23 06:50 Family History Other Asthma Heart disease Hypertension Seizures Surgical History History of section Social History Smoking Status: Former smoker alcohol intake: never substance use type: does not use what type of physical activity do you participate in: walking frequency: 1-2 times per week ROS ROS ED Constitutional Constitutional ED: Denies chills or fever(s) Eyes Eyes: Denies blurry vision or change in vision ENT ENT ED: Reports rhinorrhea; Denies sore throat Cardiovascular Cardiovascular: Denies chest pain or palpitations Respiratory/Chest Respiratory/Chest: Denies cough or dyspnea Gastrointestinal Gastrointestinal: Reports nausea; Denies vomiting Genitourinary Genitourinary ED: Denies dysuria or hematuria Musculoskeletal Musculoskeletal: Denies back pain or neck pain Integumentary Denies abscess or rash Neurologic Neurologic: Denies headache(s) or weakness Allergic/Immunologic Allergic/Immunologic ED: Denies mouth swelling or urticaria EXAM Physical Exam Const Vital Signs: 05/18/23 06:46 Temperature 97.4 F L Temperature Source Temporal Pulse Rate 69 Respiratory Rate 18 Blood Pressure 148/84 H Blood Pressure Mean 105 Pulse Ox 99 Oxygen Delivery Method Room Air Positive well nourished, well developed and obese General Appearance ED: well developed and NAD Nutritional Appearance: obese HEENT Reports moist mucous membranes Neck supple and no JVD Resp normal respiratory effort and clear to auscultation bilaterally Cardio regular rate, regular rhythm and no murmurs GI normal to inspection, nondistended, normoactive bowel sounds and non-tender Palpation: soft Extremity normal to inspection General Extremety ED: Negative for edema or tenderness General Extremity: Negative for edema Neuro oriented x3, CN's II-XII intact bilaterally and no sensory deficits noted Sensorium / Orientation: alert Motor Exam: strength 5/5 throughout Psych mental status grossly normal Skin no rashes or lesions noted MDM MDM MDM Narrative Medical decision making narrative: Differential diagnosis includes ectopic , threatened miscarriage, metrorrhagia, urinary tract infection, anemia, and electrolyte abnormality. CBC will be obtained to assess for anemia and leukocytosis. Basic metabolic profile will be obtained to assess for electrolyte abnormality and renal function. Urinalysis will be obtained to assess for urinary tract infection and hematuria. Urine hCG will be obtained to assess for . Lab Data Attestation: I reviewed the patient's lab results. Lab results narrative: Urinalysis was reviewed and was within normal limits. Urine hCG was reviewed and was negative. CBC was reviewed and was within normal limits. Basic metabolic profile was reviewed and was within normal limits. Labs: Laboratory Results - last 24 hr 05/18/23 05/18/23 06:55 07:30 WBC 10.7 RBC 4.31 Hgb 12.3 Hct 39.3 MCV 91.2 MCH 28.5 MCHC 31.3 L RDW Std Deviation 41.7 RDW Coeff of Alfredo 12.7 Plt Count 286 MPV 9.1 Immature Gran % (Auto) 0.200 Neut % (Auto) 67.4 Lymph % (Auto) 24.1 [place]ah % (Auto) 6.9 Eos % (Auto) 1.0 Baso % (Auto) 0.4 Absolute Neuts (auto) 7.2 Absolute Lymphs (auto) 2.58 Nucleated RBC % 0 Sodium 141 Potassium 3.8 Chloride 110 H Carbon Dioxide 25.0 Anion Gap 6 BUN 15 Creatinine 0.73 Estim Creat Clear Calc 93.17 Est GFR (MDRD) Af Amer 125 Est GFR (MDRD) Non-Af 103 BUN/Creatinine Ratio 20.6 H Glucose 106 Calcium 9.0 Urine Color Yellow Urine Clarity Sl. Cloudy Urine pH 6.0 Ur Specific Ramah 1.030 Urine Protein 30 H Urine Glucose (UA) Normal Urine Ketones Negative Urine Occult Blood 250 H Urine Nitrite Negative Urine Bilirubin Negative Urine Urobilinogen Normal Ur Leukocyte Esterase 25 H Urine RBC 5-10 SEEN Urine WBC 0-5 SEEN Ur Squamous Epith Cells 0-5 SEEN Urine Bacteria 1+ Urine Mucus 0 SEEN Urine Test Negative Treatment and Re-Evaluation Narrative: Patient was advised of her findings. Patient was advised that this could have been a false positive test at home. Patient was instructed to continue her medications as previously prescribed. Patient was instructed to follow-up with her primary care physician and [facility] in 5 to 7 days. Patient was instructed return if worse in any way. Patient understood and was agreeable with the plan. All questions were answered. Discharge Plan Triage Chief Complaint: Vag Bld, Preg ED Provider: Charels Blackwell Dx/Rx/DC Orders Clinical Impression: Metrorrhagia, Morbid obesity with BMI of 45.0-49.9, adult Instructions: ED Dysfunctional Uterine Bleeding Prescriptions: No Action pantoprazole 40 mg tablet,delayed release (DR/EC) 1 tab PO DAILY ferrous sulfate [FeroSul] 325 mg (65 mg iron) tablet 325 mg PO BID Patient Comments: take 1 tablet by mouth twice a day with meals ergocalciferol (vitamin D2) [Vitamin D2] 1,250 mcg (50,000 unit) capsule 1,250 mcg PO DAILY Patient Comments: take 1 capsule by mouth TWO TIMES PER WEEK FOR 1 MONTH, THEN DECREASE TO 1 CAP WEEKLY ondansetron 4 mg tablet,disintegrating 4 mg PO Q6H PRN (Reason: nausea and vomiting) Qty: 7 0RF Primary Care Provider: Annette Abbott Referrals: Annette Abbott MD [Primary Care Provider] - 5-7 Days Activity Restrictions/Additional Instructions: Follow-up with your [facility] in 5 to 7 days. Disposition Disposition: Home, Self Care
[2023-05-18 07:22] LABS: Bacteria 1+ /hpf (None Seen); Red Blood Cells-Urine 5-10 SEEN /hpf (0-5); Squamous Epithelial Cells - UA 0-5 SEEN /hpf (5-10); White Blood Cells 0-5 SEEN /hpf (0-5)
[2023-05-18 07:40] LABS: Absolute Lymphocyte Count 2.58 X10^3/uL (0.83-4.51); Absolute Neutrophil Count 7.2 X10^3/uL (2.0-7.7); Basophil# 0.04 X10^3/uL; Basophil% 0.4 % (0-1); Eosinophil# 0.11 X10^3/uL; Hematocrit 39.3 % (37-47); Hemoglobin 12.3 g/dL (12.0-15.0); Lymphocyte # 2.58 X10^3/ul (0.83-4.51); Lymphocyte % 24.1 % (19-41); Mean Corp Hgb Conc 31.3 g/dL (32-36); Mean Corpuscular Hgb 28.5 pg (27.0-32.0); Mean Corpuscular Volume 91.2 fL (81-99); Mean Platelet Vol. 9.1 fl (6.2-12.0); Monocyte# 0.74 X10^3/uL; Monocyte% 6.9 % (0-10); NRBC Flagged by Analyzer 0 % (0-5); Neutrophil # 7.21 X10^3/uL (2.7-7.7); Neutrophil % 67.4 % (47-70); Platelet Count 286 K/mm3 (150-450); RBC Distribution Width CV 12.7 % (11.6-14.6); RBC Distribution Width SD 41.7 fl (35.1-43.9); Red Blood Count 4.31 M/mm3 (4.2-5.4); White Blood Count 10.7 K/mm3 (4.4-11.0)
[2023-05-18 07:53] LABS: Anion Gap 6 (5-15); BUN 15 mg/dL (7-18); BUN/Creat Ratio 20.6 RATIO (10-20); Chloride 110 mmol/L (98-107); Creatinine, Serum 0.73 mg/dL (0.55-1.02); EST Glomerular Filtration Rate 103 mL/min (>60); Est Glom Filt Rate - Afr Amer 125 mL/min (>60); Estimated Creatinine Clearance 93.17 ml/min; Glucose 106 mg/dL (74-106); Potassium 3.8 mmol/L (3.5-5.1); Sodium Level 141 mmol/L (136-145)
== END 2023-05-18 08:23 | disposition home or self-care (01) ==
PROVIDERS: Emergency Medicine; Emergency Provider Emergency Medicine; PCP Internal Medicine; Visit Provider Emergency Medicine
DX: N92.1 Excessive and frequent menstruation with irregular cycle (principal); E66.01 Morbid (severe) obesity due to excess calories; Z68.42 Body mass index [BMI] 45.0-49.9, adult; R11.0 Nausea; Z79.899 Other long term (current) drug therapy; Z87.891 Personal history of nicotine dependence
CPT/HCPCS: 80048; 81001; 81025; 85025; 99283; A4216

== ENCOUNTER 2024-04-02 22:52 | Emergency (ER) | payer MEDICAID, SELFPAY ==
[2024-04-02 22:53] VITALS: BP 149/97; PULSE 94; RESP 16; TEMP 36.6; O2SAT 99; BMI 52.3
--- NOTE | 2024-04-02 23:07 | US_ITS ---
EXAM: US , TRANSVAGINAL CLINICAL INDICATION: bleeding TECHNIQUE: Real-time transvaginal obstetrical ultrasound of the maternal pelvis and a first trimester with image documentation. Transvaginal imaging was used for better evaluation of the fetus and adnexa. COMPARISON: No relevant prior studies available. FINDINGS: GESTATION: Single live intrauterine . heart rate: 157 bpm. [place]-rump length: 5.3 cm. Gestational age by ultrasound: 11 weeks 5 days, YOSI 10/17/2024. Gestational age by LMP: 11 weeks 4 days, YOSI 10/18/2024. PLACENTA/AMNIOTIC FLUID: The amount of amniotic fluid is within normal limits for the gestational age. The developing placenta is anterior and covers the internal cervical os. UTERUS/CERVIX: Cervix is closed, measuring over 3 cm in length. OVARIES: Right ovary: 3.8 x 3.0 x 2.4 cm with a 2.4 cm corpus luteum. Left ovary: 3 x 2.0 x 1.2 cm. No mass. FREE FLUID: No free fluid. US/Transvaginal w/Preg US IMPRESSION: 1. Single live intrauterine measuring 11 weeks 5 days with no acute abnormality identified. 2. The developing placenta demonstrates previa. This will likely resolve as the progresses, a follow-up ultrasound in the third trimester is recommended. Electronically Signed: Ubaldo Saab MD at 0:16 EDT ,
--- NOTE | 2024-04-02 23:09 | ED.VIS.FEGU ---
HPI HPI - Female History of Present Illness Chief Complaint: Vag Bld, Preg Informant: patient Associated Symptoms P: 1 Ab: 1 Narrative Narrative: Patient presents secondary to concern for vaginal bleeding. She is currently 11 weeks with her third . She has had 1 prior miscarriage. She states tonight she went to the bathroom and noted blood in the bowl. She is not sure if it was vaginal bleeding or if she may have had bleeding from a hemorrhoid. She has not had any rectal pain. She does report some lower abdominal cramping. PFSH PFSH Medical History Depression GERD (gastroesophageal reflux disease) Bilateral headaches Environmental allergies Home Medications ?Medication ?Instructions ?Recorded ?Last Taken ?Type pantoprazole 40 mg tablet,delayed 1 tab PO DAILY 04/19/22 Unknown History release ergocalciferol (vitamin D2) 1,250 1,250 mcg PO DAILY 10/03/22 Unknown History mcg (50,000 unit) capsule (Vitamin D2) ferrous sulfate 325 mg (65 mg 325 mg PO BID 10/03/22 Unknown History iron) tablet (FeroSul) ondansetron 4 mg disintegrating 4 mg PO Q6H PRN nausea and 10/03/22 Unknown Rx tablet vomiting #7 tabs Allergy/AdvReac Type Severity Reaction Status Date / Time Latex, Natural Rubber Allergy Mild itching Verified 04/02/24 22:53 aspirin Allergy Hives Verified 04/02/24 22:53 Family History Other Asthma Heart disease Hypertension Seizures Surgical History History of section Social History Smoking Status: Former smoker alcohol intake: never substance use type: does not use what type of physical activity do you participate in: walking frequency: 1-2 times per week ROS ROS ED Constitutional Constitutional ED: Denies chills or fever(s) Eyes Eyes: Denies discharge from eye(s) ENT ENT ED: Denies discharge from eye(s), rhinorrhea or sore throat Cardiovascular Cardiovascular: Denies chest pain Respiratory/Chest Respiratory/Chest: Denies cough or dyspnea Gastrointestinal Gastrointestinal: Reports abdominal pain; Denies diarrhea, nausea or vomiting Genitourinary Genitourinary ED: Denies dysuria Musculoskeletal Musculoskeletal: Denies back pain or extremity pain Integumentary Denies Abrasions or rash Neurologic Neurologic: Denies headache(s) or weakness Psychiatric Psychiatric: Denies anxiety or depression Allergic/Immunologic Allergic/Immunologic ED: Denies lip swelling or urticaria EXAM Physical Exam Const Vital Signs: 04/02/24 22:53 04/03/24 00:53 Temperature 97.8 F 97.1 F L Temperature Source Temporal Pulse Rate 94 71 Respiratory Rate 16 16 Blood Pressure 149/97 H 129/66 H Blood Pressure Mean 114 87 Pulse Ox 99 99 Positive well nourished and well developed General Appearance ED: well developed HEENT Reports moist mucous membranes Eyes EOMs intact bilaterally Chest Wall inspection of chest normal and palpation of chest normal Resp normal respiratory effort and clear to auscultation bilaterally Cardio regular rate and regular rhythm GI soft to palpation and non-tender Extremity normal to inspection Neuro oriented x3 and no sensory deficits noted Motor Exam: strength 5/5 throughout Psych mental status grossly normal Skin no rashes or lesions noted MDM MDM MDM Narrative Medical decision making narrative: I have reviewed computer records but did not see patient's blood type documented. She thinks that she may be O- but is not sure. I will check an ABO blood type. Pelvic ultrasound will be obtained to evaluate for bleeding. Lab Data Labs: Laboratory Results - last 24 hr 04/03/24 00:15 Blood Type O POSITIVE Radiography Diagnostic Testing: Clinical Impression(s) from Imaging Studies Obstetrics Ultrasound 04/02/24 23:07 IMPRESSION: 1. Single live intrauterine measuring 11 weeks 5 days with no acute abnormality identified. 2. The developing placenta demonstrates previa. This will likely resolve as the progresses, a follow-up ultrasound in the third trimester is recommended. Electronically Signed: Ubaldo Saab MD at 0:16 EDT , Treatment and Re-Evaluation Narrative: Pelvic ultrasound reveals a single live intrauterine measuring 11 weeks and 5 days with no acute abnormality. The developing placenta demonstrates previa. This should resolve as the progresses. Quick rectal examination is performed. Patient has a small noninflamed external hemorrhoid with no evidence of recent bleeding. Blood type is pending at this time. I will check this and follow-up with [facility] in the morning if needed. Being only 11 weeks with a small amount of bleeding I do not think she would be a candidate for RhoGAM regardless. Addendum: Patient's blood type does return O+. Discharge Plan Triage Chief Complaint: Vag Bld, Preg ED Provider: Michelle Greenfield Dx/Rx/DC Orders Clinical Impression: Vaginal bleeding during Instructions: Bleeding During Early Prescriptions: No Action pantoprazole 40 mg tablet,delayed release (DR/EC) 1 tab PO DAILY ferrous sulfate [FeroSul] 325 mg (65 mg iron) tablet 325 mg PO BID Patient Comments: take 1 tablet by mouth twice a day with meals ergocalciferol (vitamin D2) [Vitamin D2] 1,250 mcg (50,000 unit) capsule 1,250 mcg PO DAILY Patient Comments: take 1 capsule by mouth TWO TIMES PER WEEK FOR 1 MONTH, THEN DECREASE TO 1 CAP WEEKLY ondansetron 4 mg tablet,disintegrating 4 mg PO Q6H PRN (Reason: nausea and vomiting) Qty: 7 0RF Primary Care Provider: Annette Abbott Referrals: Annette Abbott MD [Primary Care Provider] - Layla Henderson MD [Med Staff - Active Staff] - 3-5 Days if not improving Print Language: Bulgarian Disposition Disposition: Home, Self Care Discharge Date/Time: 04/03/24 00:54
[2024-04-03 00:53] VITALS: BP 129/66; PULSE 71; RESP 16; TEMP 36.2; O2SAT 99
== END 2024-04-03 00:54 | disposition home or self-care (01) ==
PROVIDERS: Emergency Provider Emergency Medicine; PCP Internal Medicine; Visit Provider Emergency Medicine
DX: O20.9 Hemorrhage in early pregnancy, unspecified (principal); O26.891 Other specified pregnancy related conditions, first trimester; R10.30 Lower abdominal pain, unspecified; Z3A.11 11 weeks gestation of pregnancy; Z87.891 Personal history of nicotine dependence
CPT/HCPCS: 76817; 86900; 86901; 99283; A4216

== ENCOUNTER 2024-04-10 19:28 | Emergency (ER) | payer MEDICAID, SELFPAY ==
[2024-04-10 19:28] VITALS: BP 147/97; PULSE 103; RESP 18; TEMP 36.4; O2SAT 95; BMI 52.2
--- NOTE | 2024-04-10 19:40 | ED.RN ---
Discussed pt , unrelieved ARNDT and BP with Dr. Baez. Instructed to call OB. OB charge instructed pt to be seen in ER
--- NOTE | 2024-04-10 21:06 | EDS_ITS ---
HPI History of Present Illness Chief Complaint: Headache Informant: patient Onset/Context/Timing Onset: Weeks (2) Context: Gradual Onset Timing: Continuous Quality: Sharp, stabbing, throbbing Location: Generalized Worsened by: Loud noises, bright lights, certain movements Relieved by: Nothing Narrative Narrative: Patient presents with a headache that has been constant for the past 2 weeks. Patient states it came on gradually. Patient describes it as sharp, stabbing, and throbbing. Patient states her headache is generalized about her entire head. Patient states it is worse with bright lights light, loud noises, and certain movements. Patient states nothing seems to help with her headache. Patient admits to some nausea and vomiting. Patient admits to seeing some floaters in her vision. Patient denies any other visual changes. Patient denies any paresthesias or weakness. Patient does admit to some photophobia. Patient is approximately 12 weeks . [facility] Medical History (Updated 04/11/24 @ 00:[address] Charles Blackwell DO) Depression GERD (gastroesophageal reflux disease) Bilateral headaches Environmental allergies Home Medications ?Medication ?Instructions ?Recorded ?Last Taken ?Type pantoprazole 40 mg tablet,delayed 1 tab PO DAILY 04/19/22 Unknown History release ferrous sulfate 325 mg (65 mg 325 mg PO BID 10/03/22 Unknown History iron) tablet (FeroSul) ondansetron 4 mg disintegrating 4 mg PO Q6H PRN nausea and 10/03/22 Unknown Rx tablet vomiting #7 tabs acetaminophen 300 mg-codeine 30 mg 1 tab PO 04/10/24 Unknown History tablet acetaminophen 325 mg tablet (Aphen) 1,500 mg PO Q4H PRN pain 04/10/24 04/10/24 12:00 History magnesium oxide 400 mg (241.3 mg 400 mg PO DAILY 04/10/24 Unknown History magnesium) tablet Allergy/AdvReac Type Severity Reaction Status Date / Time Latex, Natural Rubber Allergy Mild itching Verified 04/02/24 22:53 aspirin Allergy Hives Verified 04/02/24 22:53 Family History Other Asthma Heart disease Hypertension Seizures Surgical History (Updated 04/10/24 @ 21:[address] Charles Blackwell DO) Hx of dilation and curettage History of section Social History Smoking Status: Former smoker alcohol intake: never substance use type: does not use what type of physical activity do you participate in: walking frequency: 1-2 times per week ROS ROS ED Constitutional Constitutional ED: Denies chills or fever(s) Eyes Eyes: Reports change in vision; Denies diplopia ENT ENT ED: Denies rhinorrhea or sore throat Cardiovascular Cardiovascular: Denies chest pain or palpitations Respiratory/Chest Respiratory/Chest: Denies cough or dyspnea Gastrointestinal Gastrointestinal: Reports nausea and vomiting Genitourinary Genitourinary ED: Denies dysuria or hematuria Musculoskeletal Musculoskeletal: Reports neck pain; Denies back pain Integumentary Denies abscess or rash Neurologic Neurologic: Reports headache(s); Denies weakness Allergic/Immunologic Allergic/Immunologic ED: Denies mouth swelling or urticaria EXAM Physical Exam Const Vital Signs: 04/10/24 19:28 04/10/24 21:28 04/10/24 23:00 Temperature 97.6 F L Temperature Source Temporal Pulse Rate 103 H 98 65 Respiratory Rate 18 18 16 Blood Pressure 147/97 H 146/79 H 121/73 H Blood Pressure Mean 113 101 89 Pulse Ox 95 98 97 Oxygen Delivery Method Room Air Room Air Room Air Positive well nourished and well developed General Appearance ED: well developed and NAD HEENT Reports moist mucous membranes Eyes PERRL Neck supple and no JVD Resp normal respiratory effort and clear to auscultation bilaterally Cardio regular rate and regular rhythm GI non-tender and non-distended Palpation: soft Neuro oriented x3, CN's II-XII intact bilaterally and no sensory deficits noted Sensorium / Orientation: alert Motor Exam: strength 5/5 throughout Psych mental status grossly normal MDM MDM MDM Narrative Medical decision making narrative: Differential diagnosis includes -induced hypertension, preeclampsia, HELLP syndrome, tension headache, migraine headache, and electrolyte abnormality. CBC will be obtained to assess for leukocytosis and anemia. Comprehensive metabolic profile will be obtained to assess for hepatic function, renal function, and electrolyte abnormality. Urinalysis will be obtained to assess for urinary tract infection and hematuria. Quantitative hCG will be obtained to assess for . Lab Data Attestation: I reviewed the patient's lab results. Lab results narrative: CBC was reviewed. There is a mild leukocytosis of 11.2. There is a mild anemia with a hemoglobin of 11.5. The remainder is within normal limits. Comprehensiv e metabolic profile was reviewed and was within normal limits. Quantitative hCG was reviewed and was [address]. Urinalysis was reviewed. There is no evidence of urinary tract infection or hematuria. Labs: Laboratory Results - last 24 hr 04/10/24 04/10/24 21:28 21:34 WBC 11.2 H RBC 4.32 Hgb 11.5 L Hct 37.0 MCV 85.6 MCH 26.6 L MCHC 31.1 L RDW Std Deviation 41.8 RDW Coeff of Alfredo 13.3 Plt Count 293 MPV 9.3 Immature Gran % (Auto) 0.500 Neut % (Auto) 71.7 H Lymph % (Auto) 21.3 [place] % (Auto) 5.3 Eos % (Auto) 1.0 Baso % (Auto) 0.2 Absolute Neuts (auto) 8.1 H Absolute Lymphs (auto) 2.39 Nucleated RBC % 0 Sodium 139 Potassium 4.0 Chloride 104 Carbon Dioxide 27.0 Anion Gap 8 BUN 8 Creatinine 0.52 L Estim Creat Clear Calc 212.07 Est GFR (MDRD) Af Amer 183 Est GFR (MDRD) Non-Af 152 BUN/Creatinine Ratio 15.4 Glucose 101 Calcium 9.6 Total Bilirubin 0.20 AST 15 ALT 22 Alkaline Phosphatase 86 Total Protein 6.3 L Albumin 2.8 L Globulin 3.5 Albumin/Globulin Ratio 0.8 L HCG, Quant 37476 H Urine Color Yellow Urine Clarity Sl. Cloudy Urine pH 5.0 Ur Specific [place] 1.030 Urine Protein 30 H Urine Glucose (UA) Normal Urine Ketones 5 H Urine Occult Blood Negative Urine Nitrite Negative Urine Bilirubin Negative Urine Urobilinogen Normal Ur Leukocyte Esterase 25 H Urine RBC 0 SEEN Urine WBC 0-5 SEEN Ur Squamous Epith Cells 0-5 SEEN Calcium Oxalate Crystal 2+ Urine Bacteria 2+ Urine Mucus 0 SEEN Treatment and Re-Evaluation :: Patient was given IV fluids, Reglan, and Benadryl. Patient is feeling better on reevaluation. Patient's blood pressure improved to 114/69 on reevaluation. Patient states her headache is almost completely resolved. Patient was advised of her findings. Patient was instructed to follow-up with her primary care physician and SATELLITE COMMUNICATIONS OPERATOR in 5 to 7 days. Patient was instructed to return if worse in any way. Patient understood and was agreeable with the plan. All questions were answered. Discharge Plan Triage Chief Complaint: Headache ED Provider: Charles Blackwell Dx/Rx/DC Orders Clinical Impression: Headache, Elevated blood pressure reading Instructions: ED Headache Unspecified Prescriptions: No Action pantoprazole 40 mg tablet,delayed release (DR/EC) 1 tab PO DAILY ferrous sulfate [FeroSul] 325 mg (65 mg iron) tablet 325 mg PO BID Patient Comments: take 1 tablet by mouth twice a day with meals ondansetron 4 mg tablet,disintegrating 4 mg PO Q6H PRN (Reason: nausea and vomiting) Qty: 7 0RF acetaminophen-codeine 300-30 mg tablet 1 tab PO magnesium oxide 400 mg (241.3 mg magnesium) tablet 400 mg PO DAILY acetaminophen [Aphen] 325 mg tablet 1,500 mg PO Q4H PRN (Reason: pain) Primary Care Provider: Annette Abbott Referrals: Annette Abbott MD [Primary Care Provider] - 3-5 Days Layla Henderson MD [Med Staff - Active Staff] - 3-5 Days Print Language: Tuvaluan Disposition Disposition: Home, Self Care
[2024-04-10] MEDS: DiphenhydrAMINE 50 MG/ML Syringe 25 MG IV (21:23)
[2024-04-10] MEDS: Metoclopramide 10 MG/2 ML Vial IV (21:23)
[2024-04-10 21:28] VITALS: BP 146/79; PULSE 98; RESP 18; O2SAT 98
[2024-04-10 21:46] LABS: Mucous, Urine 0 SEEN /hpf (<or=2+); Red Blood Cells-Urine 0 SEEN /hpf (0-5)
[2024-04-10 21:47] LABS: Absolute Lymphocyte Count 2.39 X10^3/uL (0.83-4.51); Absolute Neutrophil Count 8.1 X10^3/uL (2.0-7.7); Basophil# 0.02 X10^3/uL; Basophil% 0.2 % (0-1); Eosinophil# 0.11 X10^3/uL; Hemoglobin 11.5 g/dL (12.0-15.0); Lymphocyte # 2.39 X10^3/ul (0.83-4.51); Lymphocyte % 21.3 % (19-41); Mean Corp Hgb Conc 31.1 g/dL (32-36); Mean Corpuscular Hgb 26.6 pg (27.0-32.0); Mean Corpuscular Volume 85.6 fL (81-99); Mean Platelet Vol. 9.3 fl (6.2-12.0); Monocyte# 0.59 X10^3/uL; Monocyte% 5.3 % (0-10); NRBC Flagged by Analyzer 0 % (0-5); Neutrophil # 8.06 X10^3/uL (2.7-7.7); Neutrophil % 71.7 % (47-70); Platelet Count 293 K/mm3 (150-450); RBC Distribution Width CV 13.3 % (11.6-14.6); RBC Distribution Width SD 41.8 fl (35.1-43.9); Red Blood Count 4.32 M/mm3 (4.2-5.4); White Blood Count 11.2 K/mm3 (4.4-11.0)
[2024-04-10 21:49] LABS: Color, Urine Yellow (Yellow); Glucose, Dipstick Normal (Normal); Ketone-Dipstick 5 mg/dl (Negative); Leukocyte Esterase-Dipstick 25 /ul (Negative); Nitrite-Dipstick Negative (Negative); Occult Blood-Urine Negative /ul (Negative); Protein-Dipstick 30 mg/dl (Negative); Urine Bilirubin Dipstick Negative (Negative); Urine Clarity Sl. Cloudy (Clear); Urine Urobilinogen Normal (Normal)
[2024-04-10 21:56] LABS: Bacteria 2+ /hpf (None Seen); Calcium Oxalate Crystals Ur 2+ /hpf (<or=2+); Squamous Epithelial Cells - UA 0-5 SEEN /hpf (5-10); White Blood Cells 0-5 SEEN /hpf (0-5)
[2024-04-10 22:28] LABS: hCG Titer Quant., Serum 38340 mIU/mL (1-3)
[2024-04-10 23:00] VITALS: BP 121/73; PULSE 65; RESP 16; O2SAT 97
[2024-04-11 00:01] LABS: ALB/GLOB Ratio 0.8 RATIO (0.9-2.4); AST(SGOT) 15 U/L (15-37); Alanine Aminotransfer ALT/SGPT 22 U/L (13-56); Albumin, Serum 2.8 g/dL (3.2-5.0); Alkaline Phosphatase 86 U/L (45-117); Anion Gap 8 (5-15); BUN 8 mg/dL (7-18); BUN/Creat Ratio 15.4 RATIO (10-20); Calcium,Total 9.6 mg/dL (8.5-10.1); Chloride 104 mmol/L (98-107); Creatinine, Serum 0.52 mg/dL (0.55-1.02); EST Glomerular Filtration Rate 152 mL/min (>60); Est Glom Filt Rate - Afr Amer 183 mL/min (>60); Estimated Creatinine Clearance 212.07 ml/min; Globulin 3.5 g/dL (2.2-4.2); Glucose 101 mg/dL (74-106); Protein, Total 6.3 g/dL (6.4-8.2); Sodium Level 139 mmol/L (136-145)
[2024-04-11 00:15] VITALS: BP 120/82; PULSE 66; RESP 18; TEMP 36.6; O2SAT 99
== END 2024-04-11 00:19 | disposition home or self-care (01) ==
PROVIDERS: Emergency Provider Emergency Medicine; PCP Internal Medicine; Visit Provider Emergency Medicine
DX: O26.891 Other specified pregnancy related conditions, first trimester (principal); R51.9 Headache, unspecified; O21.9 Vomiting of pregnancy, unspecified; R03.0 Elevated blood-pressure reading, without diagnosis of hypertension; Z3A.12 12 weeks gestation of pregnancy; Z87.891 Personal history of nicotine dependence
CPT/HCPCS: 80053; 81001; 84702; 85025; 96374; 96375; 99283; J7030; A4216

== ENCOUNTER 2024-08-15 16:10 | Outpatient (CLI) | payer MEDICAID, SELFPAY ==
[2024-08-15] VITALS (17 sets, daily range): BP systolic 128–145; BP diastolic 82–89; PULSE 109–130; RESP 18; TEMP 37.3; O2SAT 95–99; BMI 53.6
[2024-08-15 16:51] LABS: Mucous, Urine 0 SEEN /hpf (<or=2+); Red Blood Cells-Urine 0 SEEN /hpf (0-5)
[2024-08-15 16:58] LABS: Color, Urine Yellow (Yellow); Glucose, Dipstick Normal (Normal); Ketone-Dipstick Negative (Negative); Leukocyte Esterase-Dipstick Negative /ul (Negative); Nitrite-Dipstick Negative (Negative); Occult Blood-Urine Negative /ul (Negative); Protein-Dipstick 15 mg/dl (Negative); Specific Gravity, Urine 1.025 (1.002-1.030); Urine Bilirubin Dipstick Negative (Negative); Urine Clarity Clear (Clear); Urine Urobilinogen Normal (Normal)
[2024-08-15] MEDS: Acetaminophen 500 MG Tablet 1000 MG PO (17:11)
[2024-08-15 17:16] LABS: ROM Internal Control Test YES-OK TO RESULT pt. (Internal QC); ROM Patient Test Negative (Negative)
[2024-08-15 17:22] LABS: Bacteria 3+ /hpf (None Seen); Squamous Epithelial Cells - UA 0-5 SEEN /hpf (5-10); White Blood Cells 0-5 SEEN /hpf (0-5)
[2024-08-15] MEDS: Nitrofurantoin Macrocrystals 100 MG Capsule PO (17:46)
== END 2024-08-15 17:54 | disposition home or self-care (01) ==
LOC: WPOUT 16:13 → WP 16:14
PROVIDERS: PCP Internal Medicine; Referring Provider Advanced Practice Midwife; Visit Provider Advanced Practice Midwife
DX: O99.891 Other specified diseases and conditions complicating pregnancy (principal); O99.613 Diseases of the digestive system complicating pregnancy, third trimester; K21.9 Gastro-esophageal reflux disease without esophagitis; M54.42 Lumbago with sciatica, left side; Z87.891 Personal history of nicotine dependence; Z3A.30 30 weeks gestation of pregnancy
CPT/HCPCS: 59025; 59050; 81001; 84112; 87086; 87088; 99221; G0378

== ENCOUNTER 2024-08-22 11:14 | Outpatient (CLI) | payer MEDICAID, SELFPAY ==
[2024-08-22] MEDS: Lactated Ringers 1,000 ML 999 ML IV (11:30)
[2024-08-22 11:36] VITALS: BP 132/75; PULSE 108; RESP 18; TEMP 36.9
[2024-08-22 11:37] LABS: Absolute Lymphocyte Count 0.79 X10^3/uL (0.83-4.51); Absolute Neutrophil Count 7.5 X10^3/uL (2.0-7.7); Basophil# 0.02 X10^3/uL; Basophil% 0.2 % (0-1); Eosinophil# 0.03 X10^3/uL; Eosinophils% 0.3 % (0-5); Hematocrit 34.9 % (37-47); Hemoglobin 10.9 g/dL (12.0-15.0); Lymphocyte # 0.79 X10^3/ul (0.83-4.51); Lymphocyte % 8.7 % (19-41); Mean Corp Hgb Conc 31.2 g/dL (32-36); Mean Corpuscular Hgb 25.6 pg (27.0-32.0); Mean Corpuscular Volume 81.9 fL (81-99); Mean Platelet Vol. 8.8 fl (6.2-12.0); Monocyte# 0.76 X10^3/uL; Monocyte% 8.4 % (0-10); NRBC Flagged by Analyzer 0 % (0-5); Neutrophil # 7.45 X10^3/uL (2.7-7.7); Neutrophil % 81.9 % (47-70); Platelet Count 265 K/mm3 (150-450); RBC Distribution Width CV 15.2 % (11.6-14.6); RBC Distribution Width SD 44.9 fl (35.1-43.9); Red Blood Count 4.26 M/mm3 (4.2-5.4); White Blood Count 9.1 K/mm3 (4.4-11.0)
[2024-08-22 11:41] VITALS: BMI 52.7
[2024-08-22] MEDS: Ondansetron 4 MG/2 ML Vial IV (11:59)
[2024-08-22 12:54] LABS: ALB/GLOB Ratio 0.5 RATIO (0.9-2.4); AST(SGOT) 17 U/L (15-37); Alanine Aminotransfer ALT/SGPT 15 U/L (13-56); Albumin, Serum 2.4 g/dL (3.2-5.0); Alkaline Phosphatase 144 U/L (45-117); Anion Gap 8 (5-15); BUN 6 mg/dL (7-18); Calcium,Total 9.3 mg/dL (8.5-10.1); Chloride 104 mmol/L (98-107); EST Glomerular Filtration Rate 158 mL/min (>60); Est Glom Filt Rate - Afr Amer 192 mL/min (>60); Estimated Creatinine Clearance 221.56 ml/min; Globulin 4.4 g/dL (2.2-4.2); Glucose 104 mg/dL (74-106); Potassium 4.2 mmol/L (3.5-5.1); Protein, Total 6.8 g/dL (6.4-8.2); Sodium Level 135 mmol/L (136-145)
== END 2024-08-22 13:05 | disposition home or self-care (01) ==
LOC: WPOUT 11:15 → WP 11:15
PROVIDERS: PCP Internal Medicine; Referring Provider Advanced Practice Midwife; Visit Provider Advanced Practice Midwife
DX: O21.9 Vomiting of pregnancy, unspecified (principal); O99.613 Diseases of the digestive system complicating pregnancy, third trimester; K21.9 Gastro-esophageal reflux disease without esophagitis; Z87.891 Personal history of nicotine dependence; Z3A.31 31 weeks gestation of pregnancy
CPT/HCPCS: 96374; 96361; 36415; 59025; 59050; 80053; 85025; 99221; J7120; G0378; J2405

== ENCOUNTER 2024-08-26 20:15 | Outpatient (CLI) | payer MEDICAID, SELFPAY ==
[2024-08-26 20:26] VITALS: BMI 52.7
[2024-08-26 20:31] VITALS: BP 141/86; PULSE 104; RESP 16; TEMP 36.8; O2SAT 97; O2SAT 98
[2024-08-26 21:16] LABS: Bacteria 0 SEEN /hpf (None Seen); Mucous, Urine 0 SEEN /hpf (<or=2+); Red Blood Cells-Urine 0 SEEN /hpf (0-5); Squamous Epithelial Cells - UA 0 SEEN /hpf (5-10)
[2024-08-26 21:17] VITALS: BP 138/84; PULSE 108
[2024-08-26] MEDS: Acetaminophen 500 MG Tablet 1000 MG PO (21:19)
[2024-08-26 21:21] LABS: Hematocrit 33.2 % (37-47); Hemoglobin 10.2 g/dL (12.0-15.0); Mean Corp Hgb Conc 30.7 g/dL (32-36); Mean Corpuscular Hgb 25.3 pg (27.0-32.0); Mean Corpuscular Volume 82.4 fL (81-99); Mean Platelet Vol. 8.6 fl (6.2-12.0); Platelet Count 253 K/mm3 (150-450); RBC Distribution Width CV 15.1 % (11.6-14.6); RBC Distribution Width SD 45.4 fl (35.1-43.9); Red Blood Count 4.03 M/mm3 (4.2-5.4)
[2024-08-26 21:25] LABS: Color, Urine Yellow (Yellow); Glucose, Dipstick Normal (Normal); Ketone-Dipstick 50 mg/dl (Negative); Leukocyte Esterase-Dipstick 25 /ul (Negative); Nitrite-Dipstick Negative (Negative); Occult Blood-Urine Negative /ul (Negative); Protein-Dipstick 15 mg/dl (Negative); Urine Bilirubin Dipstick Negative (Negative); Urine Clarity Clear (Clear); Urine Urobilinogen Normal (Normal)
[2024-08-26 21:32] VITALS: BP 147/88; PULSE 107
[2024-08-26 21:33] LABS: Prothrombin Time (Protime)PT. 13.6 SECONDS (11.7-14.9)
[2024-08-26 21:34] LABS: Partial Thromboplast Time 30.5 Seconds (24.1-36.2)
[2024-08-26 21:38] LABS: AST(SGOT) 14 U/L (15-37); Alanine Aminotransfer ALT/SGPT 10 U/L (13-56); Creatinine, Serum 0.44 mg/dL (0.55-1.02); EST Glomerular Filtration Rate 184 mL/min (>60); Est Glom Filt Rate - Afr Amer 222 mL/min (>60); Estimated Creatinine Clearance 251.88 ml/min; LDH 203 U/L (84-246); Protein, Urine (Random) 33.3 mg/dL (<11.9); Protein:Creat Ratio 266 mg/g CRE (0-200); Uric Acid 4.2 mg/dL (2.6-6.0)
[2024-08-26 21:39] LABS: Amorphous Sediment 1+; White Blood Cells 0-5 SEEN /hpf (0-5)
[2024-08-26 21:47] VITALS: BP 143/88; PULSE 108
--- NOTE | 2024-08-29 14:16 | OB.TRI.NOTE ---
HPI - General General Date of Admission: 08/26/24 Date of Service: 08/26/24 Chief Complaint: decreased movement HPI Narrative REGGIE BRUMFIELD, is a 28 F who presents Maternal Data Information YOSI Calculator Estimated Delivery Date Method Current WG Current Estimate 10/18/24 Manual 32w 6d Final YOSI: 10/18/24 Gestational age: 32 3/7 PFSH PFSH Medical History (Updated 08/29/24 @ 14:[address] Shannan Cochran MD) Depression GERD (gastroesophageal reflux disease) Bilateral headaches Environmental allergies Home Medications ?Medication ?Instructions ?Recorded ?Last Taken ?Type ondansetron 4 mg disintegrating 4 mg PO Q6H PRN nausea and 10/03/22 07/08/24 Rx tablet vomiting #7 tabs albuterol 90 mcg/actuation aerosol 90 mcg inhalation PRN 08/15/24 Unknown History inhaler nitrofurantoin 100 mg PO BID #14 CAPSULES 08/15/24 Unknown Rx monohydrate/macrocrystals 100 mg capsule (Macrobid) vit no.95-ferrous 1 tab PO DAILY 08/15/24 08/26/24 08:00 History fumarate 28 mg-folic acid 800 mcg tablet () Allergy/AdvReac Type Severity Reaction Status Date / Time Latex, Natural Rubber Allergy Mild itching Verified 08/26/24 20:25 aspirin Allergy Hives Verified 08/26/24 20:25 Family History Other Asthma Heart disease Hypertension Seizures Surgical History (Updated 04/10/24 @ 21:[address] Charles Blackwell DO) Hx of dilation and curettage History of section Social History Smoking Status: Former smoker alcohol intake: never substance use type: does not use what type of physical activity do you participate in: walking frequency: 1-2 times per week NST FHR Rate Baby A Baseline: 130 Variability:: Moderate Accelerations:: 15 x 15 Decelerations:: None NST Reactive:: Yes Uterine Activity:: no regular ctxs Assessment & Plan (1) 32 weeks gestation of : (2) High risk multigravida in third trimester: (3) Decreased movement affecting management of in third trimester: (4) Maternal obesity syndrome in third trimester: (5) BMI 50.0-59.9, adult: (6) Elevated blood pressure complicating in third trimester, antepartum: PLAN: Plan preeclampsia labs normal. NST reactive f/u in office as scheduled or return as needed kick counts
== END 2024-08-26 22:03 | disposition home or self-care (01) ==
LOC: WPOUT 20:21 → WP 20:21
PROVIDERS: PCP Internal Medicine; Visit Provider Obstetrics & Gynecology
DX: O36.8130 Decreased fetal movements, third trimester, not applicable or unspecified (principal); Z68.43 Body mass index [BMI] 50.0-59.9, adult; Z87.891 Personal history of nicotine dependence; O09.93 Supervision of high risk pregnancy, unspecified, third trimester; O99.891 Other specified diseases and conditions complicating pregnancy; R03.0 Elevated blood-pressure reading, without diagnosis of hypertension; O99.213 Obesity complicating pregnancy, third trimester; Z3A.32 32 weeks gestation of pregnancy
CPT/HCPCS: 36415; 59025; 59050; 81001; 82565; 82570; 83615; 84156; 84450; 84460; 84550; 85027; 85610; 85730; 99221; G0378

== ENCOUNTER 2024-09-14 15:28 | Outpatient (CLI) | payer MEDICAID, SELFPAY ==
[2024-09-14 15:49] VITALS: BMI 55.8
[2024-09-14 16:02] VITALS: BP 129/93; PULSE 117; O2SAT 96
[2024-09-14 16:03] VITALS: RESP 16; TEMP 37.2
[2024-09-14 16:34] LABS: Color, Urine Yellow (Yellow); Glucose, Dipstick Normal (Normal); Ketone-Dipstick Negative (Negative); Leukocyte Esterase-Dipstick Negative /ul (Negative); Nitrite-Dipstick Negative (Negative); Occult Blood-Urine Negative /ul (Negative); Protein-Dipstick 30 mg/dl (Negative); Urine Bilirubin Dipstick Negative (Negative); Urine Clarity Sl. Cloudy (Clear); Urine Urobilinogen Normal (Normal)
[2024-09-14 16:47] LABS: ROM Internal Control Test YES-OK TO RESULT pt. (Internal QC)
[2024-09-14 16:48] LABS: ROM Patient Test Negative (Negative); Record Kit Lot#, ROM+ K1972
[2024-09-14 16:53] VITALS: BP 123/85; PULSE 115
[2024-09-14 18:03] LABS: Protein, Urine (Random) 27.1 mg/dL (<11.9); Protein:Creat Ratio 202 mg/g CRE (0-200)
--- NOTE | 2024-09-15 08:39 | OB.TRI.NOTE ---
HPI - General HPI Narrative REGGIE BRUMFIELD, is a 28 F who presents at 35w1d with complaint of abdominal pain. . Maternal Data Information YOSI Calculator Estimated Delivery Date Method Current WG Current Estimate 10/18/24 Manual 35w 2d PFSH PFSH Medical History (Updated 09/15/24 @ 08:41 by Sue Flores CNM) Depression GERD (gastroesophageal reflux disease) Bilateral headaches Environmental allergies Home Medications ?Medication ?Instructions ?Recorded ?Last Taken ?Type ondansetron 4 mg disintegrating 4 mg PO Q6H PRN nausea and 10/03/22 07/08/24 Rx tablet vomiting #7 tabs albuterol 90 mcg/actuation aerosol 90 mcg inhalation PRN 08/15/24 08/19/24 History inhaler vit no.95-ferrous 1 tab PO DAILY 08/15/24 09/14/24 History fumarate 28 mg-folic acid 800 mcg tablet () Allergy/AdvReac Type Severity Reaction Status Date / Time Latex, Natural Rubber Allergy Mild itching Verified 08/26/24 20:25 aspirin Allergy Hives Verified 08/26/24 20:25 Family History Other Asthma Heart disease Hypertension Seizures Surgical History (Updated 04/10/24 @ 21:[address] Charles Blackwell DO) Hx of dilation and curettage History of section Social History Smoking Status: Former smoker alcohol intake: never substance use type: does not use what type of physical activity do you participate in: walking frequency: 1-2 times per week NST FHR Rate Baby A Baseline: 145 Variability:: Moderate Accelerations:: 15 x 15 Decelerations:: None NST Reactive:: Yes Uterine Activity:: Irritability Assessment & Plan (1) 35 weeks gestation of : PLAN: Plan 1) No signs of labor 2) Urine culture sent. ROM negative 3) D/C home
== END 2024-09-14 17:45 | disposition home or self-care (01) ==
LOC: WPOUT 15:35 → WP 15:35
PROVIDERS: PCP Internal Medicine; Visit Provider Advanced Practice Midwife
DX: O99.891 Other specified diseases and conditions complicating pregnancy (principal); M54.9 Dorsalgia, unspecified; K21.9 Gastro-esophageal reflux disease without esophagitis; Z3A.35 35 weeks gestation of pregnancy; Z87.891 Personal history of nicotine dependence
CPT/HCPCS: 59025; 59050; 81002; 82570; 84112; 84156; 87086; 87088; 99221; G0378

== ENCOUNTER 2024-09-27 09:52 | Inpatient (IN) | payer MEDICAID, SELFPAY ==
[2024-09-27] VITALS (15 sets, daily range): BP systolic 120–150; BP diastolic 72–105; PULSE 74–103; RESP 14–21; TEMP 35.8–36.7; O2SAT 94–100; BMI 51.8
[2024-09-27] MEDS: Lactated Ringers 1,000 ML 999 ML IV (10:00)
[2024-09-27 10:31] LABS: Absolute Lymphocyte Count 1.63 X10^3/uL (0.83-4.51); Absolute Neutrophil Count 8.8 X10^3/uL (2.0-7.7); Basophil# 0.03 X10^3/uL; Basophil% 0.3 % (0-1); Eosinophil# 0.11 X10^3/uL; Hematocrit 33.3 % (37-47); Hemoglobin 10.3 g/dL (12.0-15.0); Lymphocyte # 1.63 X10^3/ul (0.83-4.51); Lymphocyte % 14.5 % (19-41); Mean Corp Hgb Conc 30.9 g/dL (32-36); Mean Corpuscular Hgb 24.6 pg (27.0-32.0); Mean Corpuscular Volume 79.5 fL (81-99); Mean Platelet Vol. 9.6 fl (6.2-12.0); Monocyte# 0.62 X10^3/uL; Monocyte% 5.5 % (0-10); NRBC Flagged by Analyzer 0 % (0-5); Neutrophil # 8.78 X10^3/uL (2.7-7.7); Neutrophil % 78.3 % (47-70); Platelet Count 316 K/mm3 (150-450); RBC Distribution Width CV 15.9 % (11.6-14.6); RBC Distribution Width SD 45.3 fl (35.1-43.9); Red Blood Count 4.19 M/mm3 (4.2-5.4); White Blood Count 11.2 K/mm3 (4.4-11.0)
[2024-09-27] MEDS: Acetaminophen 500 MG Tablet 1000 MG PO ×3 (10:54→23:09)
[2024-09-27 11:51] LABS: Syphilis Antibodies Non-reactive
[2024-09-27] MEDS: Sodium Citrate/Citric Acid 30 ML UDC PO (12:02)
[2024-09-27] MEDS: Cefazolin 3 GM in Syringe 1 EACH IV (12:12)
[2024-09-27] MEDS: TRANEXAMIC ACID 1,000 MG in 0.9% Normal Saline (100mL Bag) 100 ML 440 MG IV (12:34)
--- NOTE | 2024-09-27 13:05 | PCM.HP.BLA ---
History and Physical Date of Admission: 09/27/24 History and Physical Date of Admission: 09/27/24 HPI: The patient is a 28 year old female presenting for pre-operative visit. She is scheduled for and bilateral salpingectomy, for previous c/s, cholestasis, sterilization request on 09/27/24. Procedure discussed along with risks, benefits and complications. Other alternatives discussed for management. Consent form signed? Yes. PAST MEDICAL HISTORY PAST MEDICAL HISTORY DiagnosisDate ?Acute asthma ?Anemia ?Anxiety state ?Depression ?Gestational [id number] ?History of gestational hypertension03/13/2024 ?Iron deficiency ? depression ?Vitamin D deficiency PAST SURGICAL HISTORY PAST SURGICAL HISTORY ProcedureLateralityDate ? SECTION HX ?D&C, DIAG AND/OR THERAPEUTIC x2 CURRENT MEDICATIONS Current Outpatient Medications MedicationSigDispenseRefill ?albuterol HFA (PROVENTIL HFA, VENTOLIN HFA) 90 mcg/actuation inhalerAS NEEDED ?loratadine (CLARITIN) 10 mg tabletTake 1 tablet by mouth once daily as needed.30 tablet0 ?fluticasone (FLONASE) 50 mcg/actuation nasal sprayUse 2 Sprays in each nostril once daily as needed.16 g0 ? vit/iron fum/folic ac ( 1 + 1 ORAL)Take by mouth. ?ondansetron orally disintegrating (ZOFRAN ODT) 4 mg disintegrating tabletEVERY 6 HOURS as needed for nausea and vomiting ?sertraline (ZOLOFT) 50 mg tabletTake 1 tablet by mouth once daily.30 tablet1 ?hydrOXYzine HCl (ATARAX) 25 mg tabletTake 1 tablet by mouth three times a day as needed for itching/rash.30 tablet1 No current facility-administered medications for this visit. ALLERGIES: Aspirin and Latex PERSONAL HISTORY: SOCIAL HISTORY Social History Tobacco Use ?Smoking status:Never Passive exposure:Never ?Smokeless tobacco:Never ?Tobacco comments: vaps- at times Vaping Use ?Vaping status:Former ?Quit date:01/08/2024 ?Substances:Nicotine ?Devices:Disposable Substance Use Topics ?Alcohol use:Not Currently Comment: once a month ?Drug use:Never FAMILY HISTORY: FAMILY HISTORY FAMILY HISTORY ProblemRelationAge of Onset ?No Ocular DiseaseMother ?ThyroidMother ?No Ocular DiseaseFather ?Bleeding disorderSister pt unaware of specifics ?other (endometriosis)Sister ?No Known ProblemsSister ?No Known ProblemsSister ?DiabetesMaternal Grandmother ?StrokeMaternal Grandfather ?Alzheimer's DiseasePaternal Grandmother ?CancerPaternal Grandfather ?No Known ProblemsDaughter REVIEW OF SYMPTOMS: GENERAL: denies fevers or chills ENDOCRINOLOGY: has not been on steroids Cardiology : denies palpitations or chest pain Respiratory: denies SOB or cough Hematology: denies history of prolonged bleeding or easy bruising or VTE Allergy: Denies history of personal or family history of allergy to anesthesia PHYSICAL EXAMINATION: VITALS: Blood pressure 124/72, weight 128.4 kg (283 lb), last menstrual period 01/12/2024. GENERAL: The patient is well nourished, well hydrated in no acute distress. , The patient is oriented to time, place, and person. NECK: Supple. No lynphadenopathy, normal thyroid, no thyromegaly. LUNGS: Clear to auscultation bilaterally. no wheezes, rhonchi or rales HEART: Regular rate and rhythm, Normal heart sounds, and No murmurs or gallops IMPRESSION: Estimated Date of Delivery: 10/18/24 w/ previous c/s, cholestasis of preganncy, materal obesity w/ BMI of 51 PLAN: The risks/benefits/alternatives and personal involved for the planned repeat c/s and sterilization request were reviewed with the patient. Her questions were answered to her satisfaction and she desires to proceed. Consent was signed. I reviewed with her postop instructions and expectations. I have reviewed and updated past medical and surgical history, medications and allergies Assessment & Plan Assessment/Plan (1) BMI 50.0-59.9, adult: (2) Maternal obesity syndrome in third trimester: (3) High risk multigravida in third trimester: (4) Previous delivery affecting : (5) Consultation for female sterilization: (6) Cholestasis during in third trimester: 09/24/24 1432 <Electronically signed by Shannan Cochran MD> Cosigner Signature (if applicable): CC: Dr. Annette Abbott MD; Dr. Shannan Cochran MD~ Signed ADDENDUM by Dr. Shannan Cochran MD on 09/27/24 at 1222 Addendum patient also meets criteria for gestational hypertension
--- NOTE | 2024-09-27 13:10 | OP.PCM_ITS ---
Assessment & Plan (1) Cholestasis during in third trimester: (2) Consultation for female sterilization: (3) Previous delivery affecting : (4) BMI 50.0-59.9, adult: (5) Maternal obesity syndrome in third trimester: (6) 37 weeks gestation of : Maternal Data Information YOSI Calculator Estimated Delivery Date Method Current WG Current Estimate 10/18/24 Manual 37w 0d Final YOSI: 10/18/24 Gestational age: 37 0/7 Operative Report (OB) Cecarean Details Procedure Type: low transverse (with bilateral salpingectomy) Date of Procedure: 09/27/24 Procedure Start Time: 12:34 Procedure Stop Time: 13:10 Time of Delivery: 12:37 Pre-Operative Diagnosis: Repeat Elective (sterilization request) Post-Operative Diagnosis: Same as Pre-operative diagnosis Classification: Scheduled Type of Anesthesia: Spinal Antibiotic Given: Ancef 3 grams IV x1 Drain: Caputo to straight drain Estimated Blood Loss: 800 Fluids Replaced: 1050 Findings Description of surgery: The patient was taken to the operating room. She was prepped and draped in the dorsal supine position with a leftward tilt. A Pfannenstiel skin incision was made approximately 2 cm above the symphysis pubis and carried through to underlying layer fascia with the scalpel. The fascia was incised incised in the midline and extended laterally with the Yost scissors. The fascia was dissected off the rectus muscles with blunt and sharp dissection. The rectus muscles were in the midline and the peritoneum was entered bluntly. The peritoneal incision was stretched and the bladder blade was placed. The uterine incision was made in a low transverse fashion with the scalpel and extended superiorly and inferiorly with blunt dissection. The amniotic membranes were ruptured bluntly and clear amniotic fluid returned. The 's head was brought to the incision in the flexed position and delivered without difficulty. The remainder of the infant was delivered with gentle traction and fundal pressure in the standard fashion. The mouth and nares were bulb suctioned. The cord was clamped and cut as the infant was stimulated. Cord clamping was delayed 30 seconds. The was handed off to the waiting nursing staff. The placenta was delivered with fundal massage and gentle traction in the standard fashion. The uterus was exteriorized and cleared of all clots and debris. The cervix was dilated with a ring forcep. The uterine incision was closed with #1 Vicryl in a running locked fashion. A second layer of the same suture was used in an imbricating fashion to obtain hemostasis. A [id number] suture was needed near the left edge of the incision and a bleeding sinus to obtain hemostasis. The incision was examined and was found to be hemostatic. The uterus was placed back into the peritoneal cavity and hemostasis was again confirmed. The left fallopian tube was identified and followed out to the fimbr iated end. The LigaSure device was used to clamp, seal and transect the antimesenteric portion of the tube to the cornual insertion which was clamped, sealed and transected from the uterus with the LigaSure device. Excellent hemostasis the pedicles was noted. The pathology specimen was handed off and the same procedure was performed on contralateral side. Excellent hemostasis of the right pedicles was noted as well and the tubes were removed in their entirety. The uterine incision was reexamined and found to be hemostatic. Some Nisha was placed over the incision. The rectus muscles were examined and any bleeding was Bovie cauterized. The parietal peritoneum and rectus muscles were closed en bloc with an 0 Vicryl running suture. The surgical teams outer gloves were then changed. The rectus fascia was examined and any bleeding was Bovie cauterized and the rectus fascia was closed with looped #1 PDS suture suture in a running standard fashion. Nisha was placed over the rectus muscles and in the subcutaneous layer as well. The subcutaneous tissue was examining and any bleeding was Bovie cauterized. The subcutaneous tissue was reapproximated with 3-0 Vicryl suture. The skin was closed in a subcuticular fashion by the GLASSWARE ENGRAVER with me present in the labor and delivery suite. I performed the remainder of the procedure with assistance. All sponge, lap, and needle counts were correct. The patient was taken to her room for recovery in a stable condition. Surgical findings: normal tubes and ovaries, vigorous female Presentation: Vertex Amniotic Membrane Rupture Type: Artificial Amniotic Fluid Description: Clear Placental Delivery Description: Expressed Placenta Disposition: Sent to Pathology Specimen collected: Yes Description of specimen(s) removed: Placenta and bilateral fallopian tubes Cord Vessel Description: 3 Vessels Cord Entanglement: None Infant A gender: Female (Winry 7lb 14 oz) (1 minute): 8 (5 minute): 9 Delayed Cord Clamping: Yes [employer] battery charger tester: Yes Press Brake Operator: Vikas Palafox Tasks completed by cataloging assistant: Closing and Retracting Additional preschool assistant principal?: No Complications Complications: No
[2024-09-27] MEDS: Oxytocin 15 Units/NS 250ml 15 UNITS/250 ML IV.SOLN 83 UNITS IV (13:25)
[2024-09-27] MEDS: Ketorolac 30 MG/ML Syringe IV ×2 (14:06→20:06)
[2024-09-27] MEDS: 0.9% Saline Lock 10 ML Syringe IV (14:06)
--- NOTE | 2024-09-27 14:22 | PLAC_PTH ---
PATIENT: REGGIE BRUMFIELD LOC: [facility] U#:[id number] AGE/SX: 28/F ROOM: WP006 RE09/27/[address]: Dr. Shannan Cochran MD : 1995 BED: 1 DIS: 09/29/2024 SPEC #: [id number] RECD: 09/27/24 14:36 STATUS: GERARDO KRUSE #: [id number] AMADOR: 09/27/24 14:[address]: Shannan Cochran DEPT: SURGICAL PATHOLOGY RECD BY: Conor Arvizu ENTERED: 09/30/24 10:09 SP TYPE: PLACENTA OTHR DR: Dr. Annette Abbott MD Tissues: A - Placenta, NOS B - Fallopian tube Procedures: Surgery Specimen Level II Surgery Specimen Level V HEADER OPERATION: Primary section PRE-OP DIAGNOSIS: Repeat TISSUE SUBMITTED: A. Placenta, B. Fallopian tubes MICROSCOPIC DIAGNOSIS A. Placenta: Placental disc - third trimester placenta (770 gm). - focal chronic villitis of unknown etiology. Membranes - no pathologic diagnosis. Umbilical cord - three blood vessels and no pathologic diagnosis. B. Bilateral fallopian tubes, salpingectomy: Bilateral fallopian tubes, no pathologic diagnosis. 10/01/2024 MICROSCOPIC DESCRIPTION Slides are reviewed. GROSS DESCRIPTION A. SPECIMEN: PLACENTA / CLINICAL INFORMATION: A. Weight: 3.6 kg B. Gestational Age: 37 weeks C. Sex: Female PLACENTAL WEIGHT (POST FIXATION): 770 gm PLACENTAL DIMENSIONS: 22 x 15 x 5 cm PLACENTAL SHAPE: Usual ovoid PLACENTAL WEIGHT FOR GESTATIONAL AGE: over 99th percentile MEMBRANES - Present A. Insertion: Marginal B. Site of rupture from edge: 7.0 cm from edge of placental disc C. Color of membrane: Lozano-sharp D. Abnormalities: None UMBILICAL CORD - Present A. Color: Lozano-sharp B. Insertion: Marginal C. Length: 61 cm D. Diameter: 1.5 cm E. Number of vessels: Three F. Abnormalities: None PLACENTAL DISC - Present A. Color of surface: Lozano-sharp B. surface abnormalities: None C. Maternal cotyledons: focally disrupted D. Attached retro placental clot: present E. Cut surface: Dark red and spongy F. Lesions: None G. Separate clot: Numerous blood clots measuring in aggregate 8 x7 x 4cm and weighing in aggregate 77 gm. SECTIONS SUBMITTED: 1. Membrane roll 2. Cord, maternal end 3. Cord, end 4. Placental disc, and maternal surfaces, disrupted area 5. Placental disc, and maternal surfaces 6. Placental disc, and maternal surfaces B. Received in fixative is one container labeled with the patient's name and designated bilateral fallopian tubes. Received in fixative is one container labeled with the patient's name and designated bilateral fallopian tubes. Specimen consists of bilateral fallopian tubes including fimbrial ends. Left tube is identified by suture. The right fallopian tube measures 8 cm in length and 1.0 cm in diameter. The left fallopian tube measures 7.5 cm in length and 0.8 cm in diameter. Sections reveal unremarkable cut surfaces. Radiotelephone Operator sections are submitted in two cassettes as follows: 1 - right fallopian tube, 2 - left fallopian tube. / SJ:cc 09/30/24 TC:5 CPT: 37713 x2, 96065
[2024-09-27 14:38] LABS: Pathology Specimen OB SEE PATHOLOGY REPORT
[2024-09-27] MEDS: oxyCODONE 5 MG Tablet PO ×2 (15:25→20:15)
[2024-09-27] MEDS: Lactated Ringers 1,000 ML 100 ML IV (16:41)
[2024-09-27] MEDS: Sertraline 50 MG Tablet PO (19:10)
[2024-09-27] MEDS: NIFEdipine 30 MG Tablet PO (19:10)
[2024-09-28] MEDS: Enoxaparin 40 MG/0.4 ML Syringe SC ×3 (00:41→22:04)
[2024-09-28 00:45] VITALS: BP 123/85; PULSE 91; RESP 16; TEMP 36.1; O2SAT 96
[2024-09-28] MEDS: oxyCODONE 5 MG Tablet PO ×3 (01:52→13:58)
[2024-09-28 04:45] VITALS: BP 123/77; PULSE 95; RESP 16; TEMP 36.3; O2SAT 95
[2024-09-28] MEDS: Acetaminophen 500 MG Tablet 1000 MG PO ×4 (04:50→23:55)
[2024-09-28 05:21] LABS: Hematocrit 30.8 % (37-47); Hemoglobin 9.7 g/dL (12.0-15.0); Mean Corp Hgb Conc 31.5 g/dL (32-36); Mean Corpuscular Hgb 25.3 pg (27.0-32.0); Mean Corpuscular Volume 80.4 fL (81-99); Mean Platelet Vol. 9.2 fl (6.2-12.0); Platelet Count 242 K/mm3 (150-450); RBC Distribution Width CV 15.8 % (11.6-14.6); RBC Distribution Width SD 45.2 fl (35.1-43.9); Red Blood Count 3.83 M/mm3 (4.2-5.4); White Blood Count 14.1 K/mm3 (4.4-11.0)
--- NOTE | 2024-09-28 06:12 | PN.OBGYN_ITS ---
Subjective Subjective Patient is doing well. She offers no complaints. She denies headaches, vision changes, upper abdominal pain, vomiting. Pain is well-controlled. She denies lightheadedness, dizziness, chest pain, shortness of breath, leg pain. She has been up to use the restroom twice and is voiding small amounts. She feels she is emptying her bladder. Tolerating a regular diet without nausea or vomiting. Lochia is normal. Objective Data Objective Data Vital Signs: Vital Signs Temp Pulse Resp BP Pulse Ox O2 Del Method 97.4 F L 95 16 123/77 H 95 Room Air 09/28/24 04:45 09/28/24 04:45 09/28/24 04:45 09/28/24 04:45 09/28/24 04:45 09/28/24 04:45 Oxygen Delivery Method Room Air Weight: 283 lb 8 oz Body Mass Index (BMI) 51.8 Intake & Output: Intake and Output for Last 24 Hours 09/26/24 09/27/24 09/28/24 23:59 23:59 23:59 Intake Total 2090 / 2090 951.67 / 951.67 Output Total 1075 / 1075 235 / 235 Balance 1015 / 1015 716.67 / 716.67 Lab / Micro Data 09/28/24 05:05 Labs: Laboratory Results - last 24 hr 09/27/24 10:00: WBC 11.2 H, RBC 4.19 L, Hgb 10.3 L, Hct 33.3 L, MCV 79.5 L, MCH 24.6 L, MCHC 30.9 L, RDW Std Deviation 45.3 H, RDW Coeff of Alfredo 15.9 H, Plt Count 316, MPV 9.6, Immature Gran % (Auto) 0.400, Neut % (Auto) 78.3 H, Lymph % (Auto) 14.5 L, [place] % (Auto) 5.5, Eos % (Auto) 1.0, Baso % (Auto) 0.3, Absolute Neuts (auto) 8.8 H, Absolute Lymphs (auto) 1.63, Nucleated RBC % 0, Syphilis Total Ab Non-reactive, Blood Type O POSITIVE, Antibody Screen NEGATIVE 09/28/24 05:05: WBC 14.1 H, RBC 3.83 L, Hgb 9.7 L, Hct 30.8 L, MCV 80.4 L, MCH 25.3 L, MCHC 31.5 L, RDW Std Deviation 45.2 H, RDW Coeff of Alfredo 15.8 H, Plt Count 242, MPV 9.2 Physical Exam Const alert and no apparent distress General Appearance: comfortable HEENT normocephalic Resp normal respiratory effort GI soft to palpation, non-tender and non-distended GI Narrative: Obese, dressing c/d/i Extremity no calf tenderness Assessment & Plan (1) BMI 50.0-59.9, adult: (2) Elevated blood pressure complicating in third trimester, antepartum: PLAN: No symptoms of pre e and no hyper reflexia on exam this morning. Procardia 30 mg XL daily started 09/27 and BP's now improved. Cont to monitor (3) Maternal obesity syndrome in third trimester: (4) High risk multigravida in third trimester: (5) Previous delivery affecting : (6) Delivery by section: PLAN: POD#1 s/p section. Doing well post op. Routine post op care. UOP with reyes in place was borderline overnight. Patient received 1 L fluid bolus immediately post op per RN. Reyes was removed overnight. Urine is clear and patient PO hydrating. Has voided in small amounts x 2 since removal of reyes. Discussed straight cath with patient and she declines, and she would like to try to void one more time. Cont to monitor UOP. She is agreeable to straight cath if unable to void next attempt. RN notified to have pt attempt to void before 7 am (7) Acute blood loss anemia: PLAN: Appropriate for post op. No symptoms of anemia. Iron supplement on discharge
[2024-09-28 08:00] VITALS: BP 126/83; PULSE 96; RESP 14; TEMP 36.6; O2SAT 95
--- NOTE | 2024-09-28 09:00 | NURSING ---
Patient bladder scanned 90 minutes after void. 65ml of urine in bladder. Bladder does not feel distended. Patient denies feeling a full bladder. Was able to void at 0730 with no difficulty. Urine was concentrated.
[2024-09-28] MEDS: Sertraline 50 MG Tablet PO (09:38)
[2024-09-28] MEDS: Ketorolac 30 MG/ML Syringe IV (09:38)
[2024-09-28] MEDS: Senna/Docusate Sodium 1 Tablet PO (09:39)
[2024-09-28] MEDS: 0.9% Saline Lock 10 ML Syringe IV ×2 (09:39→17:11)
[2024-09-28 12:50] VITALS: BP 128/84; PULSE 100; RESP 14; TEMP 36.5; O2SAT 94
[2024-09-28] MEDS: Naproxen 500 MG Tablet PO ×2 (15:54→23:55)
[2024-09-28] MEDS: Ondansetron 4 MG/2 ML Vial IV (17:11)
[2024-09-28 17:17] VITALS: BP 140/97; PULSE 89; RESP 14; O2SAT 94
--- NOTE | 2024-09-28 17:23 | NURSING ---
Patient called me into room while she was up to the bathroom. She reports feeling sudden pressure on the left side of her abdomen when she stood up. The pressure persisted in the bathroom and improved slightly when she sat back in the chair. She rates the pressure a 7/10. Bowel sounds absent other than being hypoactive in the right lower quadrant. Abdomen is soft but tender to palpation. Patient denies passing gas yet. She had a bowel movement that she considered normal the same day of surgery. She reports having a history of constipation. Became nauseous and sweaty with the discomfort. VS WNL. No increased vaginal bleeding. BP is 140s/90s at this time.
[2024-09-28 18:14] LABS: Absolute Lymphocyte Count 1.54 X10^3/uL (0.83-4.51); Absolute Neutrophil Count 10.2 X10^3/uL (2.0-7.7); Basophil# 0.02 X10^3/uL; Basophil% 0.2 % (0-1); Eosinophils% 0.8 % (0-5); Hematocrit 30.5 % (37-47); Hemoglobin 9.3 g/dL (12.0-15.0); Lymphocyte # 1.54 X10^3/ul (0.83-4.51); Mean Corp Hgb Conc 30.5 g/dL (32-36); Mean Corpuscular Hgb 24.6 pg (27.0-32.0); Mean Corpuscular Volume 80.7 fL (81-99); Monocyte# 0.98 X10^3/uL; Monocyte% 7.6 % (0-10); NRBC Flagged by Analyzer 0 % (0-5); Neutrophil # 10.16 X10^3/uL (2.7-7.7); Platelet Count 248 K/mm3 (150-450); RBC Distribution Width CV 15.7 % (11.6-14.6); RBC Distribution Width SD 45.8 fl (35.1-43.9); Red Blood Count 3.78 M/mm3 (4.2-5.4); White Blood Count 12.9 K/mm3 (4.4-11.0)
[2024-09-28 18:43] LABS: ALB/GLOB Ratio 0.6 RATIO (0.9-2.4); AST(SGOT) 18 U/L (15-37); Alanine Aminotransfer ALT/SGPT 12 U/L (13-56); Albumin, Serum 2.2 g/dL (3.2-5.0); Alkaline Phosphatase 134 U/L (45-117); Anion Gap 6 (5-15); BUN 8 mg/dL (7-18); BUN/Creat Ratio 17.9 RATIO (10-20); Calcium,Total 8.9 mg/dL (8.5-10.1); Chloride 106 mmol/L (98-107); Creatinine, Serum 0.45 mg/dL (0.55-1.02); EST Glomerular Filtration Rate 179 mL/min (>60); Est Glom Filt Rate - Afr Amer 217 mL/min (>60); Estimated Creatinine Clearance 243.74 ml/min; Globulin 3.8 g/dL (2.2-4.2); Glucose 99 mg/dL (74-106); Potassium 3.8 mmol/L (3.5-5.1); Sodium Level 137 mmol/L (136-145)
[2024-09-28 20:03] VITALS: BP 138/88; PULSE 100; RESP 16; O2SAT 97
[2024-09-28] MEDS: NIFEdipine 30 MG Tablet PO (20:18)
[2024-09-29 01:28] VITALS: BP 133/93; PULSE 78; RESP 18; TEMP 36.6; O2SAT 96
[2024-09-29] MEDS: Acetaminophen 500 MG Tablet 1000 MG PO ×2 (06:14→12:49)
--- NOTE | 2024-09-29 07:32 | PN.OBGYN_ITS ---
Subjective Subjective Patient is doing well. She reports pain is well-controlled. She has been tolerating p.o. without vomiting. She reports chronic nausea, but no changes in her nausea. She is ambulating better, and has been ambulating more throughout the night. She is voiding well without difficulty. She reports passing gas yesterday, but today reports she is feeling gas move around but is not passing gas today. No bowel movements. Denies lightheadedness, dizziness, chest pain, shortness of breath, leg pain. She desires to go home today. No headache or vision changes. Objective Data Objective Data Vital Signs: Vital Signs Temp Pulse Resp BP Pulse Ox O2 Del Method 97.8 F 78 18 133/93 H 96 Room Air 09/29/24 01:28 09/29/24 01:28 09/29/24 01:28 09/29/24 01:28 09/29/24 01:28 09/29/24 01:28 Oxygen Delivery Method Room Air Weight: 283 lb 8 oz Body Mass Index (BMI) 51.8 Intake & Output: Intake and Output for Last 24 Hours 09/27/24 09/28/24 09/29/24 23:59 23:59 23:59 Intake Total 2090 / 2090 1651.67 / 1651.67 Output Total 1075 / 1075 735 / 735 Balance 1015 / 1015 916.67 / 916.67 Lab / Micro Data 09/28/24 17:55 09/28/24 17:55 Labs: Laboratory Results - last 24 hr 09/28/24 17:55: WBC 12.9 H, RBC 3.78 L, Hgb 9.3 L, Hct 30.5 L, MCV 80.7 L, MCH 24.6 L, MCHC 30.5 L, RDW Std Deviation 45.8 H, RDW Coeff of Alfredo 15.7 H, Plt Count 248, MPV 9.0, Immature Gran % (Auto) 0.400, Neut % (Auto) 79.0 H, Lymph % (Auto) 12.0 L, [place] % (Auto) 7.6, Eos % (Auto) 0.8, Baso % (Auto) 0.2, Absolute Neuts (auto) 10.2 H, Absolute Lymphs (auto) 1.54, Nucleated RBC % 0, Sodium 137, Potassium 3.8, Chloride 106, Carbon Dioxide 25.0, Anion Gap 6, BUN 8, Creatinine 0.45 L, Estim Creat Clear Calc 243.74, Est GFR (MDRD) Af Amer 217, Est GFR (MDRD) Non-Af 179, BUN/Creatinine Ratio 17.9, Glucose 99, Calcium 8.9, Total Bilirubin 0.30, AST 18, ALT 12 L, Alkaline Phosphatase 134 H, Total Protein 6.0 L, Albumin 2.2 L, Globulin 3.8, Albumin/Globulin Ratio 0.6 L Physical Exam Const alert and no apparent distress General Appearance: comfortable HEENT normocephalic Resp normal respiratory effort GI soft to palpation and non-distended GI Narrative: ATTP, no rebounding, no guarding, no rigidity, dressing in place Extremity no calf tenderness Assessment & Plan (1) Acute blood loss anemia: (2) Delivery by section: PLAN: POD#2 s/p repeat section. Doing well post op. Pain controlled. Discharge instructions reviewed.
--- NOTE | 2024-09-29 07:42 | DCINST_ITS ---
Discharge Instructions Diet Discharge Diet: No restrictions DC O2, CPAP, BIPAP needs Home O2 Discharge instructions: No Dressing / Incision Discharge Activity: May Drive (once you are strong enough to slam on a brake or turn a steering wheel sharply) and May Shower May resume sexual activity in: 6 weeks (nothing in the vagina and no soaking in water for 6 weeks) Weight Bearing Status: Weight bearing as tolerated Lifting Restrictions: nothing heavier than baby Additional Activity Instructions:: Check your blood pressure at home as we discussed. Call if persistently 140/90 or higher Dressing / Incision Call your doctor if your incision/area has: Continuous Slow Oozing, Sudden Increased Bleeding, Increased Pain/ Swelling, Increased Redness, Foul Smelling Discharge and Swelling at the incision site Call your doctor if you observe: Fever of 101 or Higher, Coldness, Increased Pain, Numbness or Tingling, Inability to urinate, Inability to have a bowel movement, Using more than 1 pad per hour, Shortness of breath, Dizziness, Swelling in the ankles, Chest pain, Increased palpitations (irregular heartbeat), Calf discomfort and Uncontrolled pain Suture Line Care: Avoid Pulling/Pushing and Avoid Pinching/Bending Remove Dressing in: 5 days Cleanse incision/area with: Soap & Water Follow Up Care Please Follow Up With: Shannan Cochran MD When: 1 week for blood pressure check and incision check 6 week visit Test Results: Test results from this visit will be discussed in further detail at your follow- up appointment, if applicable. Discharge Plan Admission Admit Date/Time: 09/27/24 09:52 Primary Reason for Your Visit: delivery Attending Provider: Shannan Cochran Primary Care Provider: Annette Abbott Instructions Patient Instructions: After a Discharge Orders/Prescriptions Prescriptions: New ibuprofen 600 mg tablet 600 mg PO Q6H PRN (Reason: pain) Qty: 30 0RF docusate sodium [Colace] 100 mg capsule 100 mg PO DAILY Qty: 30 0RF ferrous sulfate 325 mg (65 mg iron) tablet 325 mg PO QODAY Qty: 30 0RF nifedipine 30 mg Tablet Extended Release 24hr 30 mg PO DAILY@2000 Qty: 30 2RF Continued ondansetron 4 mg tablet,disintegrating 4 mg PO Q6H PRN (Reason: nausea and vomiting) Qty: 7 0RF PNV cmb#95-ferrous fumarate-FA [] 28 mg iron- 800 mcg tablet 1 tab PO DAILY albuterol 90 mcg/actuation aerosol 90 mcg inhalation PRN sertraline [Zoloft] 50 mg tablet 50 mg PO DAILY Referrals / Follow Up: Annette Abbott MD [Primary Care Provider] - Disposition Disposition (needs filled in before D/C Order can be placed): Home, Self Care
--- NOTE | 2024-09-29 07:45 | PCM.DC.SUM ---
Providers Date of Admission: 09/27/24 Date of Discharge: 09/29/24 Primary Care Physician: Dr. Annette Abbott MD Reason For Visit: C SECTION/CSECTION DELIVERY Diagnosis Discharge Diagnosis (1) Acute blood loss anemia: Status: Acute Code(s): D62 - Acute posthemorrhagic anemia (2) Delivery by section: Status: Acute Plan: POD#2 s/p repeat section. Doing well post op. Pain controlled. Discharge instructions reviewed. Medications at Discharge Home Medications ondansetron 4 mg disintegrating tablet 4 mg PO Q6H PRN nausea and vomiting #7 tabs 10/03/22 albuterol 90 mcg/actuation aerosol inhaler 90 mcg inhalation PRN asthma 08/15/24 vit no.95-ferrous fumarate 28 mg-folic acid 800 mcg tablet () 1 tab PO DAILY 08/15/24 sertraline 50 mg tablet (Zoloft) 50 mg PO DAILY depression 09/27/24 docusate sodium 100 mg capsule (Colace) 100 mg PO DAILY #30 caps 09/29/24 ferrous sulfate 325 mg (65 mg iron) tablet 325 mg PO QODAY #30 tabs 09/29/24 ibuprofen 600 mg tablet 600 mg PO Q6H PRN pain #30 tabs 09/29/24 nifedipine 30 mg tablet,extended release 24 hr 30 mg PO DAILY@2000 #30 tabs 09/29/24 Hospital Course Operations section Summary of Care Provided Minutes Spent on Discharge: 15 Hospital Course: Patient presented to the hospital for a scheduled repeat section with sterilization. See operative report for details. She was started on Procardia for elevated blood pressures. She was discharged home in good condition on postoperative day 2. Weight / BMI Weight Weight: 283 lb 8 oz Body Mass Index (BMI) 51.8 ABG / Lab / Microbiology Data 09/28/24 17:55 09/28/24 17:55 Laboratory: Laboratory Results - last 24 hr 09/28/24 17:55: WBC 12.9 H, RBC 3.78 L, Hgb 9.3 L, Hct 30.5 L, MCV 80.7 L, MCH 24.6 L, MCHC 30.5 L, RDW Std Deviation 45.8 H, RDW Coeff of Alfredo 15.7 H, Plt Count 248, MPV 9.0, Immature Gran % (Auto) 0.400, Neut % (Auto) 79.0 H, Lymph % (Auto) 12.0 L, [place] % (Auto) 7.6, Eos % (Auto) 0.8, Baso % (Auto) 0.2, Absolute Neuts (auto) 10.2 H, Absolute Lymphs (auto) 1.54, Nucleated RBC % 0, Sodium 137, Potassium 3.8, Chloride 106, Carbon Dioxide 25.0, Anion Gap 6, BUN 8, Creatinine 0.45 L, Estim Creat Clear Calc 243.74, Est GFR (MDRD) Af Amer 217, Est GFR (MDRD) Non-Af 179, BUN/Creatinine Ratio 17.9, Glucose 99, Calcium 8.9, Total Bilirubin 0.30, AST 18, ALT 12 L, Alkaline Phosphatase 134 H, Total Protein 6.0 L, Albumin 2.2 L, Globulin 3.8, Albumin/Globulin Ratio 0.6 L D/C Instructions Discharge Diet: No restrictions May resume sexual activity in: 6 weeks (nothing in the vagina and no soaking in water for 6 weeks) Weight Bearing Status: Weight bearing as tolerated Additional Activity Instructions: Check your blood pressure at home as we discussed. Call if persistently 140/90 or higher Call your doctor if your incision/area has: Continuous Slow Oozing, Sudden Increased Bleeding, Increased Pain/ Swelling, Increased Redness, Foul Smelling Discharge and Swelling at the incision site Call your doctor if you observe: Fever of 101 or Higher, Coldness, Increased Pain, Numbness or Tingling, Inability to urinate, Inability to have a bowel movement, Using more than 1 pad per hour, Shortness of breath, Dizziness, Swelling in the ankles, Chest pain, Increased palpitations (irregular heartbeat), Calf discomfort and Uncontrolled pain Suture Line Care: Avoid Pulling/Pushing and Avoid Pinching/Bending Cleanse incision/area with: Soap & Water DC O2, CPAP, BIPAP Needs Home O2 Discharge instructions: No Please Follow Up With: Shannan Cochran MD When: 1 week for blood pressure check and incision check 6 week visit Meaningful Use Info Meaningful Use Meaningful Use Diagnoses (Choose all that apply): None applicable Ischemic Stroke Statin Dosing Therapy Reference: STATIN DOSE THERAPY REFERENCE: * Patients > 75 years receive moderate or high dose statin therapy. * Patients 75 years or YOUNGER should receive HIGH intensity statin dose unless contraindicated. You will be required to document reason for non-treatment if statin daily dose does not meet guidelines. HIGH DOSE STATIN THERAPY DAILY Atorvastatin > than or = to 40 mg Rosuvastatin > than or = to 20 mg Amlodipine + Atorvastatin > than or = to 2.5/40 mg Ezetimibe + Simvastatin 10/80 mg Simvastatin 80mg Discharge Plan Admission Admit Date/Time: 09/27/24 09:52 Primary Reason for Your Visit: delivery Attending Provider: Shannan Cochran Primary Care Provider: Annette Abbott Instructions Patient Instructions: After a Discharge Orders/Prescriptions Prescriptions: New ibuprofen 600 mg tablet 600 mg PO Q6H PRN (Reason: pain) Qty: 30 0RF docusate sodium [Colace] 100 mg capsule 100 mg PO DAILY Qty: 30 0RF ferrous sulfate 325 mg (65 mg iron) tablet 325 mg PO QODAY Qty: 30 0RF nifedipine 30 mg Tablet Extended Release 24hr 30 mg PO DAILY@2000 Qty: 30 2RF Continued ondansetron 4 mg tablet,disintegrating 4 mg PO Q6H PRN (Reason: nausea and vomiting) Qty: 7 0RF PNV cmb#95-ferrous fumarate-FA [] 28 mg iron- 800 mcg tablet 1 tab PO DAILY albuterol 90 mcg/actuation aerosol 90 mcg inhalation PRN sertraline [Zoloft] 50 mg tablet 50 mg PO DAILY Referrals / Follow Up: Annette Abbott MD [Primary Care Provider] - Disposition Disposition (needs filled in before D/C Order can be placed): Home, Self Care
[2024-09-29] MEDS: Naproxen 500 MG Tablet PO (08:45)
[2024-09-29] MEDS: Senna/Docusate Sodium 1 Tablet PO (08:46)
[2024-09-29] MEDS: Sertraline 50 MG Tablet PO (10:04)
[2024-09-29] MEDS: Enoxaparin 40 MG/0.4 ML Syringe SC (10:04)
--- NOTE | 2024-09-29 11:25 | CASEMGMT ---
Social Work Assessment Labor and Delivery Unit Patient Address: [address] [place] [address] Phone number: Date of Referral: 09/27/2024 Time of Referral: 10:27 Referred By: Shannan Cochran Date of Intervention: 09/29/2024 Time of Intervention: 11:23 Reason for Referral: Anxiety, Depression and patient?s father an alcoholic History obtained from: Medical records, mother of baby (MOB) and father of baby (FOB).? Household composition: MOB (Marita, age 26), FOB (Jorge Douglas, age 27), their 7-year-old daughter Emily Douglas, their daughter Aguilar Douglas, born 09/27/2024 and the FOB?s ?22 or 23? year old brother Dimas. Patient's parent/guardian status: MOB and FOB have been together for over 10 years and are not .? Both are actively involved and will be providing care for baby. MOB denied any concerns with domestic violence and described a positive and supportive relationship with the FOB. Medical History: : 3, Para, now 2.? MOB reported she had a miscarriage in November. ?MOB received care through [facility] beginning at 8 weeks and 5 days. Visits were observed to be routine. Apgars: 8 and 9. Weight: 7lbs, 15oz. Gettering Filament Machine Operator: Dr. Santana. Educational Status: MOB and FOB denied any issues or concerns with reading or writing. MOB had some high school? through some of grade 12.? FOB earned his GED. Financial Status: MOB and FOB reported their income is sufficient to meet the needs of their family at this time. MOB is currently a [id number] mom and the FOB is currently employed full-time as an A-class burrer operator. Supplies: MOB and FOB reported they have all the supplies they need for baby at this time including but not limited to: Car seat, bassinet, pack-n-play, crib, diapers, bottles, formula and clothing. Childcare/Caregiver(s):? MOB identified herself as the primary caregiver since she will be a [id number] mom however the FOB will help provide care as well during the times he is not at work. Transportation:? MOB and FOB reported they are both licensed drivers and have a reliable vehicle to take baby to and from all medical appointments. No transportation issues identified. Programs/Agencies Involved: LOREN is currently receiving Medicaid through [employer] [facility]. [facility] used to be involved with Emily however MOB is uncertain at this time if she is going to reapply for . No other agencies or programs previous or currently involved. MOB and FOB denied the need for any agency needs or connections at this time. Children Services/Legal Issues:? Denied. Behavioral Health Issues: ??Mental Health History: MOB has a history of PPD, anxiety and depression which has been documented.? 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 MOB reported the first time she had PDD started around 3 weeks after delivery and the MOB described it as ?intense?. MOB shared that during this time she began to have suicidal ideations (SI), was put on medication which MOB reported helped tremendously and MOB stated she hasn?t had any suicidal thoughts in over 6 years. MOB reported depression is currently being managed and MOB mostly struggles with anxiety. ?FOB denied any mental health concerns. ?Substance Use History: Denied. MOB reported she drinks small amounts of [id number] on special occasions/holidays. ?Family History: MOB reported both of her parents have depression. MOB?s father is an alcoholic however was said to have ?cut back? drastically. Newborns maternal grandfather (MGF) used to drink 10 beers a day in addition to a few shots and now doesn?t drink daily and can just have 1-2 beers according to the MOB. ???Drug Screens: None obtained at the time of this admission. ?fat purification worker administered the [place].? MOB?s score was 17.? fat purification worker provided verbal education about the screening tool as well as scores to look out for in the future which MOB reported she understood. fat purification worker spoke with the MOB at length about the recommendation of getting connected to a mental health therapist. MOB again denied any current SI. Family/Social Stressors: ?MOB and FOB denied any current family or social stressors. Both reported that in general, this has been a tough year as the FOB had a hospitalization due to medical issues, MOB had a miscarriage and MOB?s cousin recently miscarried which brought MOB?s own grief issues back to surface.? Maternal grandmother (MGM) and paternal grandmother (PGM) are said to not get along and the MOB and PGM are also said to not get along. Support Systems: Ample.? MOB and FOB identified each other as their biggest supports.? MOB also identified her aunt as a main support and the FOB identified his father and step-mother as his main supports. Depression/Shaken Baby/Safe Sleeping: fat purification worker provided verbal and written education on PPD, Safe Sleeping and Shaken Baby.? Parents verbalized an understanding. ??? ASSESSMENT:? MOB and FOB provided consent to social work visit. Upon arrival, MOB was sitting upright in the hospital bed with and the FOB was standing close-by. Both MOB and FOB were very verbally engaged and cooperative. Both expressed their excitement in getting to take home as well as to be able to see their other daughter. MOB and FOB talked about how they fixed up ?s nursery to make it special. fat purification worker observed positive interaction between the MOB and FOB and social staff worker observed positive interaction between the MOB and . Clifford was dressed in a new outfit and laying on what appeared to be a new blanket and MOB and FOB had warmer winter outfits laying out for . MOB kept her eyes on throughout much of the visit, was rubbing ?s stomach and was very attentive to ?s needs. FOB appeared to be very hands-on and was helping get everything packed up and ready for discharge. FOB presented with a bright, affect and appeared to be highly motivated and supportive.? MOB was very attentive to and spoke highly of the FOB however presented as very flat. At the end of the assessment, social staff worker asked to speak with the MOB alone which both MOB and FOB were agreeable to. MOB reported feeling safe in her home and denied any previous or current domestic violence, drug or alcohol abuse or unmanaged mental health concerns. Safe Plan of Care for infant related to substance use: N/A; not needed. ? PLAN:? Baby to be discharged home when ready.? fat purification worker also provided written information on depression, depression resources and Help Me Grow as additional resources offered by social staff worker which MOB and FOB accepted. No other services requested or indicated. Michelle Berry, GRAPHIC ART SALES REPRESENTATIVE, SHOP ASSISTANT
[2024-09-29 11:37] VITALS: BP 129/84; PULSE 82; RESP 18; TEMP 36.4; O2SAT 98
[2024-09-29] MEDS: NIFEdipine 30 MG Tablet PO (12:49)
== END 2024-09-29 13:15 | disposition home or self-care (01) | DRG 539 ==
PROVIDERS: Obstetrics & Gynecology; Admitting Provider Obstetrics & Gynecology; PCP Internal Medicine; Referring Provider Obstetrics & Gynecology; Visit Provider Obstetrics & Gynecology
PROC: 10D00Z1 Extraction of Products of Conception, Low, Open Approach (ICD-10-PCS; CPT 59514; principal; 2024-09-27 11:45)
DX: O34.211 Maternal care for low transverse scar from previous cesarean delivery (principal); E66.9 Obesity, unspecified; O13.4 Gestational [pregnancy-induced] hypertension without significant proteinuria, complicating childbirth; O99.214 Obesity complicating childbirth; Z37.0 Single live birth; Z30.2 Encounter for sterilization; Z3A.37 37 weeks gestation of pregnancy; Z79.899 Other long term (current) drug therapy; Z87.891 Personal history of nicotine dependence
CPT/HCPCS: 59025; 59050; 80053; 85025; 85027; 86780; 86850; 86900; 86901; 88302; 88307; 99221; J7120; A4216; G0378; J2405